=== PATIENT | male | born 1965 | race Two or more races ===

== ENCOUNTER 2019-01-30 20:50 | Inpatient (IN) | payer MEDICARE, OTHER ==
[~2019-01-30] VITALS: Ht 167.6 cm; Wt 79.8 kg
[~2019-01-30 20:50] MED LIST: CAPT25TA3 PO; CITA-106 PO; HYDR25TA PO
[2019-01-30 21:46] VITALS: BP 129/80
[2019-01-31] VITALS (7 sets, daily range): BP systolic 120–152; BP diastolic 76–100
[2019-01-31] MEDS: LORazepam 2 MG TABLET PO PRN ×2 (09:30→15:58)
[2019-01-31] MEDS ORDERED: CAPTOPRIL 50 MG TABLET PO SCH (10:00)
[2019-01-31] MEDS: HYDROCHLOROTHIAZIDE 25 MG TABLET PO SCH (10:09)
[2019-01-31] MEDS ORDERED: LOPERAMIDE HCL 2 MG CAPSULE PO PRN (16:45)
[2019-01-31] MEDS ORDERED: ALBUTEROL SULFATE HFA 90 MCG/PUFF 8 GM INHALER IH PRN (16:45)
[2019-01-31] MEDS ORDERED: DOCUSATE SODIUM 100 MG CAPSULE PO PRN (16:45)
[2019-01-31] MEDS ORDERED: ONDANSETRON HCL 4 MG TABLET PO PRN (16:45)
[2019-01-31] MEDS ORDERED: MAGNESIUM HYDROXIDE SUSPENSION 30 ML UDCUP PO PRN (16:45)
[2019-01-31] MEDS ORDERED: BENZOCAINE/MENTHOL LOZENGE MM PRN (16:45)
[2019-01-31] MEDS ORDERED: CloNIDine HCL 0.1 MG TABLET PO PRN (16:45)
[2019-01-31] MEDS ORDERED: OMEPRAZOLE 20 MG CAPSULE PO PRN (16:45)
[2019-01-31] MEDS ORDERED: PETROLATUM,WHITE 28 GM JELLY TP PRN (16:45)
[2019-01-31] MEDS ORDERED: BACITRACIN 28.4 GM OINTMENT TP PRN (16:45)
[2019-02-01 05:16] VITALS: BP 132/80
[2019-02-01 07:41] LABS: BASOPHILS % (AUTO) 1.8 % (0.0-2.0); EOSINOPHILS % (AUTO) 4.8 % (1.0-6.0); HEMATOCRIT 40.2 % (41-53); HEMOGLOBIN 13.3 g/dL (13.5-17.5); LYMPHOCYTES # (AUTO) 2.7 K/uL (1.0-4.8); LYMPHOCYTES % (AUTO) 36.5 % (22.0-44.0); MEAN CORPUSCULAR HEMOGLOBIN 28.4 pg (26.0-34.0); MEAN CORPUSCULAR VOLUME 86 fL (80-100); MONOCYTES # (AUTO) 0.5 K/uL (0.1-1.0); MONOCYTES % (AUTO) 6.7 % (2.0-9.0); NEUTROPHILS # (AUTO) 3.7 K/uL (1.8-7.7); NEUTROPHILS % (AUTO) 50.2 % (40.0-70.0); PLATELET COUNT (AUTO) 285 K/uL (150-450); RED BLOOD CELL COUNT(AUTO) 4.68 MIL/uL (4.50-5.90); RED CELL DISTRIBUTION WIDTH 16.7 % (11.5-14.5)
[2019-02-01 08:22] VITALS: BP 138/85
[2019-02-01 08:22] LABS: ALANINE AMINOTRANSFERASE 13 U/L (12-78); ALBUMIN 3.2 g/dL (3.4-5.0); ALKALINE PHOSPHATASE 59 U/L (46-116); ANION GAP 6 mmol/L (8-16); ASPARTATE AMINOTRANSFERASE 16 U/L (15-37); BILIRUBIN,TOTAL 0.3 mg/dL (0.1-1.0); CALCIUM, TOTAL 8.8 mg/dL (8.8-10.5); CARBON DIOXIDE 27 mmol/L (22-29); CHLORIDE 104 mmol/L (98-107); CHOL/HDL RATIO 2.8 (4.2-7.3); CHOLESTEROL 149 mg/dL (131-200); CREATININE 0.74 mg/dL (0.60-1.30); GLOMERULAR FILTR. RATE CALC > 60 mL/min (>60); GLUCOSE,RANDOM 103 mg/dL (70-110); HDL CHOLESTEROL 54 mg/dL (40-60); LDL CHOL (CALC.) 75 mg/dL (0-130); PHOSPHORUS 2.9 mg/dL (2.5-4.9); SODIUM SERUM 137 mmol/L (136-145); THYROID STIMULATING HORMONE 0.39 uIU/mL (0.36-3.74); TOTAL PROTEIN, SERUM 6.4 g/dL (6.4-8.2); TRIGLYCERIDES 100 mg/dL (15-150); UREA NITROGEN, BLOOD 15 mg/dL (7-18)
[2019-02-01] MEDS: DIVALPROEX SODIUM 500 MG DR TABLET PO SCH ×2 (08:27→16:40)
[2019-02-01] MEDS: LORazepam 2 MG TABLET PO PRN ×3 (08:27→18:56)
[2019-02-01] MEDS: RisperiDONE 1 MG TABLET PO SCH ×2 (08:27→16:40)
[2019-02-01] MEDS: HYDROCHLOROTHIAZIDE 25 MG TABLET PO SCH (08:27)
[2019-02-01 12:15] VITALS: BP 125/67
[2019-02-01] MEDS: CAPTOPRIL 12.5 MG TABLET PO SCH (12:18)
[2019-02-01 16:07] VITALS: BP 138/76
[2019-02-02 00:08] VITALS: BP 132/84
[2019-02-02 00:10] VITALS: BP 132/84
[2019-02-02 08:11] VITALS: BP_SYST 126; BP_SYST 127; BP_DIAS 86
[2019-02-02] MEDS: LORazepam 2 MG TABLET PO PRN ×3 (08:17→18:01)
[2019-02-02] MEDS: HYDROCHLOROTHIAZIDE 25 MG TABLET PO SCH (08:17)
[2019-02-02] MEDS: CAPTOPRIL 12.5 MG TABLET PO SCH (08:17)
[2019-02-02] MEDS: RisperiDONE 1 MG TABLET PO SCH ×2 (08:17→16:33)
[2019-02-02] MEDS: DIVALPROEX SODIUM 500 MG DR TABLET PO SCH ×2 (08:17→16:33)
[2019-02-02 13:02] VITALS: BP 122/78
[2019-02-02] MEDS: ACETAMINOPHEN 325 MG TABLET PO PRN (13:02)
[2019-02-02 16:10] VITALS: BP 124/66
[2019-02-02 16:54] VITALS: BP 124/66
[2019-02-03 04:11] VITALS: BP 122/67
[2019-02-03 04:13] VITALS: BP 122/67
[2019-02-03 08:13] VITALS: BP 136/64
[2019-02-03] MEDS: RisperiDONE 1 MG TABLET PO SCH ×2 (08:49→17:04)
[2019-02-03] MEDS: HYDROCHLOROTHIAZIDE 25 MG TABLET PO SCH (08:49)
[2019-02-03] MEDS: DIVALPROEX SODIUM 500 MG DR TABLET PO SCH ×2 (08:49→17:00)
[2019-02-03] MEDS: CAPTOPRIL 12.5 MG TABLET PO SCH (08:49)
[2019-02-03] MEDS: CITALOPRAM HYDROBROMIDE 20 MG TABLET PO SCH (08:49)
[2019-02-03] MEDS: NICOTINE 14 MG/24 HOUR PATCH TD SCH (08:50)
[2019-02-03] MEDS: LORazepam 2 MG TABLET PO PRN ×2 (13:02→18:42)
[2019-02-03] MEDS: ACETAMINOPHEN 325 MG TABLET PO PRN (14:57)
[2019-02-03 16:17] VITALS: BP 117/62
[2019-02-03] MEDS: IBUPROFEN 600 MG TABLET PO PRN (17:16)
[2019-02-04 04:10] VITALS: BP 121/68
[2019-02-04 04:13] VITALS: BP 121/68
[2019-02-04] MEDS: ACETAMINOPHEN 325 MG TABLET PO PRN (06:55)
[2019-02-04 08:13] VITALS: BP 121/53
[2019-02-04] MEDS: DIVALPROEX SODIUM 500 MG DR TABLET PO SCH ×3 (08:34→16:39)
[2019-02-04] MEDS: CITALOPRAM HYDROBROMIDE 20 MG TABLET PO SCH (08:34)
[2019-02-04] MEDS: HYDROCHLOROTHIAZIDE 25 MG TABLET PO SCH (08:34)
[2019-02-04] MEDS: RisperiDONE 1 MG TABLET PO SCH ×2 (08:34→16:39)
[2019-02-04 08:35] VITALS: BP 123/70
[2019-02-04] MEDS: CAPTOPRIL 12.5 MG TABLET PO SCH (08:35)
[2019-02-04] MEDS: NICOTINE 14 MG/24 HOUR PATCH TD SCH ×2 (08:35→08:48)
[2019-02-04] MEDS: LORazepam 2 MG TABLET PO PRN ×3 (08:50→19:08)
[2019-02-04] MEDS: IBUPROFEN 600 MG TABLET PO PRN (16:21)
[2019-02-04 16:32] VITALS: BP 120/82
[2019-02-04 16:34] VITALS: BP 120/82
[2019-02-05 00:27] VITALS: BP 131/75
[2019-02-05 00:32] VITALS: BP 131/75
[2019-02-05 08:26] VITALS: BP 114/65
[2019-02-05] MEDS: DIVALPROEX SODIUM 500 MG DR TABLET PO SCH ×2 (08:42→16:36)
[2019-02-05] MEDS: HYDROCHLOROTHIAZIDE 25 MG TABLET PO SCH (08:42)
[2019-02-05] MEDS: RisperiDONE 1 MG TABLET PO SCH ×2 (08:42→16:37)
[2019-02-05] MEDS: CITALOPRAM HYDROBROMIDE 20 MG TABLET PO SCH (08:42)
[2019-02-05] MEDS: NICOTINE 14 MG/24 HOUR PATCH TD SCH (08:43)
[2019-02-05] MEDS: CAPTOPRIL 12.5 MG TABLET PO SCH (08:43)
[2019-02-05] MEDS: LORazepam 2 MG TABLET PO PRN ×3 (10:35→20:15)
[2019-02-05 12:12] VITALS: BP 118/68
[2019-02-05] MEDS: ACETAMINOPHEN 325 MG TABLET PO PRN ×2 (12:12→21:15)
[2019-02-05] MEDS: IBUPROFEN 600 MG TABLET PO PRN (14:09)
[2019-02-05 16:18] VITALS: BP_SYST 108; BP_SYST 120; BP_DIAS 72; BP_DIAS 76
[2019-02-05 17:13] VITALS: BP 120/72
[2019-02-05] MEDS: ZOLPIDEM TARTRATE 10 MG TABLET PO PRN (21:15)
[2019-02-05] MEDS: MAG HYDROX/AL HYDROX/SIMETH ES 30 ML SUSPENSION UDCUP PO PRN (21:15)
[2019-02-06] VITALS: BP 118/68
[2019-02-06 08:28] VITALS: BP 137/78
[2019-02-06] MEDS: CAPTOPRIL 12.5 MG TABLET PO SCH (08:28)
[2019-02-06] MEDS: DIVALPROEX SODIUM 500 MG DR TABLET PO SCH ×2 (08:28→17:04)
[2019-02-06] MEDS: RisperiDONE 1 MG TABLET PO SCH ×2 (08:28→17:04)
[2019-02-06] MEDS: CITALOPRAM HYDROBROMIDE 20 MG TABLET PO SCH (08:28)
[2019-02-06] MEDS: HYDROCHLOROTHIAZIDE 25 MG TABLET PO SCH (08:28)
[2019-02-06] MEDS: NICOTINE 14 MG/24 HOUR PATCH TD SCH (08:29)
[2019-02-06 08:39] VITALS: BP 117/70
[2019-02-06] MEDS: LORazepam 2 MG TABLET PO PRN ×3 (09:33→20:00)
[2019-02-06] MEDS: ACETAMINOPHEN 325 MG TABLET PO PRN ×2 (09:34→20:00)
[2019-02-06 12:39] VITALS: BP 124/72
[2019-02-06] MEDS: IBUPROFEN 600 MG TABLET PO PRN (13:29)
[2019-02-06 16:04] VITALS: BP 136/84
[2019-02-06] MEDS: MAG HYDROX/AL HYDROX/SIMETH ES 30 ML SUSPENSION UDCUP PO PRN (16:25)
[2019-02-07 06:31] VITALS: BP 126/77
[2019-02-07] MEDS: LORazepam 2 MG TABLET PO PRN ×4 (06:41→20:00)
[2019-02-07] MEDS: IBUPROFEN 600 MG TABLET PO PRN (06:41)
[2019-02-07] MEDS: CAPTOPRIL 12.5 MG TABLET PO SCH (09:37)
[2019-02-07] MEDS: RisperiDONE 1 MG TABLET PO SCH ×2 (09:37→16:59)
[2019-02-07] MEDS: CITALOPRAM HYDROBROMIDE 20 MG TABLET PO SCH (09:37)
[2019-02-07] MEDS: NICOTINE 14 MG/24 HOUR PATCH TD SCH (09:38)
[2019-02-07] MEDS: HYDROCHLOROTHIAZIDE 25 MG TABLET PO SCH (09:38)
[2019-02-07] MEDS: DIVALPROEX SODIUM 500 MG DR TABLET PO SCH ×2 (09:38→16:59)
[2019-02-07 09:42] VITALS: BP 118/80
[2019-02-07 16:09] VITALS: BP 118/87
[2019-02-07] MEDS: ACETAMINOPHEN 325 MG TABLET PO PRN (16:33)
[2019-02-07] MEDS: MAG HYDROX/AL HYDROX/SIMETH ES 30 ML SUSPENSION UDCUP PO PRN (18:30)
[2019-02-08 03:00] VITALS: BP 123/78
[2019-02-08] MEDS: ZOLPIDEM TARTRATE 10 MG TABLET PO PRN (03:07)
[2019-02-08] MEDS: ACETAMINOPHEN 325 MG TABLET PO PRN ×2 (03:10→18:43)
[2019-02-08 07:00] VITALS: BP 121/89
[2019-02-08] MEDS: LORazepam 2 MG TABLET PO PRN ×3 (07:20→16:09)
[2019-02-08 08:23] VITALS: BP 109/69
[2019-02-08] MEDS: RisperiDONE 1 MG TABLET PO SCH ×2 (09:08→16:09)
[2019-02-08] MEDS: CAPTOPRIL 12.5 MG TABLET PO SCH (09:08)
[2019-02-08] MEDS: HYDROCHLOROTHIAZIDE 25 MG TABLET PO SCH (09:08)
[2019-02-08] MEDS: CITALOPRAM HYDROBROMIDE 20 MG TABLET PO SCH (09:08)
[2019-02-08] MEDS: DIVALPROEX SODIUM 500 MG DR TABLET PO SCH ×2 (09:08→16:09)
[2019-02-08] MEDS: NICOTINE 14 MG/24 HOUR PATCH TD SCH (09:09)
[2019-02-08] MEDS: MAG HYDROX/AL HYDROX/SIMETH ES 30 ML SUSPENSION UDCUP PO PRN (11:23)
[2019-02-08 16:09] VITALS: BP 115/65
[2019-02-08] MEDS: IBUPROFEN 600 MG TABLET PO PRN (16:09)
[2019-02-08 16:30] VITALS: BP 110/68
[2019-02-08 18:43] VITALS: BP 112/70
[2019-02-09 04:29] VITALS: BP 123/95
[2019-02-09] MEDS: LORazepam 2 MG TABLET PO PRN ×4 (04:36→19:55)
[2019-02-09] MEDS: HYDROCHLOROTHIAZIDE 25 MG TABLET PO SCH (08:51)
[2019-02-09] MEDS: CITALOPRAM HYDROBROMIDE 20 MG TABLET PO SCH (08:51)
[2019-02-09] MEDS: CAPTOPRIL 12.5 MG TABLET PO SCH (08:51)
[2019-02-09] MEDS: RisperiDONE 1 MG TABLET PO SCH ×2 (08:51→16:53)
[2019-02-09] MEDS: DIVALPROEX SODIUM 500 MG DR TABLET PO SCH ×2 (08:51→16:53)
[2019-02-09 09:01] VITALS: BP 133/86
[2019-02-09] MEDS: ACETAMINOPHEN 325 MG TABLET PO PRN ×2 (10:18→17:44)
[2019-02-09] MEDS: NICOTINE 14 MG/24 HOUR PATCH TD SCH (10:19)
[2019-02-09 14:24] VITALS: BP 119/73
[2019-02-09] MEDS: IBUPROFEN 600 MG TABLET PO PRN (14:26)
[2019-02-09] MEDS ORDERED: NICOTINE 14 MG/24 HOUR PATCH TD PRN (14:30)
[2019-02-09 16:29] VITALS: BP 125/70
[2019-02-09] MEDS: ZOLPIDEM TARTRATE 10 MG TABLET PO PRN (21:05)
[2019-02-10 04:32] VITALS: BP 127/82
[2019-02-10] MEDS: LORazepam 2 MG TABLET PO PRN ×3 (04:40→16:01)
[2019-02-10 08:28] VITALS: BP 117/67
[2019-02-10] MEDS: CAPTOPRIL 12.5 MG TABLET PO SCH (09:17)
[2019-02-10] MEDS: RisperiDONE 1 MG TABLET PO SCH ×2 (09:17→16:48)
[2019-02-10] MEDS: HYDROCHLOROTHIAZIDE 25 MG TABLET PO SCH (09:17)
[2019-02-10] MEDS: DIVALPROEX SODIUM 500 MG DR TABLET PO SCH ×2 (09:17→16:48)
[2019-02-10] MEDS: CITALOPRAM HYDROBROMIDE 20 MG TABLET PO SCH (09:20)
[2019-02-10] MEDS: ACETAMINOPHEN 325 MG TABLET PO PRN (11:35)
[2019-02-10 16:08] VITALS: BP 120/75
[2019-02-11 06:25] VITALS: BP 126/79
[2019-02-11] MEDS: CITALOPRAM HYDROBROMIDE 20 MG TABLET PO SCH (09:11)
[2019-02-11] MEDS: RisperiDONE 1 MG TABLET PO SCH ×2 (09:12→16:32)
[2019-02-11] MEDS: CAPTOPRIL 12.5 MG TABLET PO SCH (09:12)
[2019-02-11] MEDS: DIVALPROEX SODIUM 500 MG DR TABLET PO SCH ×2 (09:12→16:32)
[2019-02-11] MEDS: HYDROCHLOROTHIAZIDE 25 MG TABLET PO SCH (09:28)
[2019-02-11] MEDS: LORazepam 2 MG TABLET PO PRN ×3 (09:28→18:41)
[2019-02-11 10:56] VITALS: BP 119/74
[2019-02-11] MEDS: ACETAMINOPHEN 325 MG TABLET PO PRN (13:51)
[2019-02-11 14:11] VITALS: BP 122/86
[2019-02-11 16:41] VITALS: BP 116/77
[2019-02-11] MEDS: IBUPROFEN 600 MG TABLET PO PRN (16:41)
[2019-02-11] MEDS: ZOLPIDEM TARTRATE 10 MG TABLET PO PRN (20:48)
[2019-02-11] MEDS ORDERED: RISP2 PO (22:42)
[2019-02-11] MEDS ORDERED: HYDR25TA PO (22:42)
[2019-02-11] MEDS ORDERED: DIVA-76 PO (22:42)
[2019-02-11] MEDS ORDERED: CITA-106 PO (22:42)
[2019-02-12 05:01] VITALS: BP 124/75
[2019-02-12 07:21] VITALS: BP 126/78
[2019-02-12] MEDS: LORazepam 2 MG TABLET PO PRN (07:43)
[2019-02-12] MEDS: DIVALPROEX SODIUM 500 MG DR TABLET PO SCH (08:35)
[2019-02-12] MEDS: RisperiDONE 1 MG TABLET PO SCH (08:35)
[2019-02-12] MEDS: CITALOPRAM HYDROBROMIDE 20 MG TABLET PO SCH (08:35)
[2019-02-12 08:46] VITALS: BP 114/73
[2019-02-12 08:59] VITALS: BP 119/78
[2019-02-12] MEDS: ACETAMINOPHEN 325 MG TABLET PO PRN (09:00)
[2019-02-12] MEDS ORDERED: MAGNESIUM OXIDE 400 MG TABLET PO SCH (09:00)
[2019-02-12] MEDS: HYDROCHLOROTHIAZIDE 25 MG TABLET PO SCH (09:00)
[2019-02-12] MEDS: CAPTOPRIL 12.5 MG TABLET PO SCH (09:00)
[2019-02-12] MEDS ORDERED: MAGOX PO (09:01)
== END 2019-02-12 11:15 | disposition home or self-care (01) | DRG 885 ==
LOC: EDSTATUS 20:50 → B2X 01-31 09:17
PROVIDERS: ADMIT Psychiatry & Neurology Psychiatry; ATTEND Psychiatry & Neurology Psychiatry
DX: F25.9 Schizoaffective disorder, unspecified (principal); R45.851 Suicidal ideations; F32.9 Major depressive disorder, single episode, unspecified; F41.9 Anxiety disorder, unspecified; G47.00 Insomnia, unspecified; I10 Essential (primary) hypertension; J44.9 Chronic obstructive pulmonary disease, unspecified; F15.10 Other stimulant abuse, uncomplicated; F10.10 Alcohol abuse, uncomplicated; Z71.6 Tobacco abuse counseling; Z71.51 Drug abuse counseling and surveillance of drug abuser
CPT/HCPCS: 83735; 84100; 84132; 84443; 93005; 96365; 96366; 96367; 96375; 99291; 99292; G0480

== ENCOUNTER 2019-01-30 21:51 | Emergency (ER) | payer MEDICARE ==
[~2019-01-30] VITALS: Ht 167.6 cm; Wt 81.8 kg
[~2019-01-30 21:51] MED LIST changes: +ESCI10TA PO; +FERR1TAB85 PO; +HC130O TP; +NYST1POW MC; +PREPARATION H O57 GM RC; +QUET100T PO
[2019-01-30 23:31] LABS: BASOPHILS % (AUTO) 2.8 % (0.0-2.0); EOSINOPHILS % (AUTO) 3.3 % (1.0-6.0); HEMATOCRIT 38.5 % (41-53); HEMOGLOBIN 13.1 g/dL (13.5-17.5); LYMPHOCYTES # (AUTO) 2.6 K/uL (1.0-4.8); LYMPHOCYTES % (AUTO) 34.6 % (22.0-44.0); MEAN CORPUSCULAR HEMOGLOBIN 28.9 pg (26.0-34.0); MEAN CORPUSCULAR HGB CONC 34.1 G/dL (31.0-37.0); MEAN CORPUSCULAR VOLUME 85 fL (80-100); MONOCYTES # (AUTO) 0.4 K/uL (0.1-1.0); MONOCYTES % (AUTO) 5.7 % (2.0-9.0); NEUTROPHILS % (AUTO) 53.6 % (40.0-70.0); PLATELET COUNT (AUTO) 324 K/uL (150-450); RED BLOOD CELL COUNT(AUTO) 4.54 MIL/uL (4.50-5.90); RED CELL DISTRIBUTION WIDTH 16.3 % (11.5-14.5)
[2019-01-30 23:52] LABS: ALANINE AMINOTRANSFERASE 23 U/L (12-78); ALBUMIN 3.7 g/dL (3.4-5.0); ALKALINE PHOSPHATASE 89 U/L (46-116); ANION GAP 8 mmol/L (8-16); ASPARTATE AMINOTRANSFERASE 15 U/L (15-37); BILIRUBIN,TOTAL 0.2 mg/dL (0.1-1.0); CALCIUM, TOTAL 9.3 mg/dL (8.8-10.5); CARBON DIOXIDE 26 mmol/L (22-29); CHLORIDE 105 mmol/L (98-107); CREATININE 0.85 mg/dL (0.60-1.30); GLOMERULAR FILTR. RATE CALC > 60 mL/min (>60); GLUCOSE,RANDOM 124 mg/dL (70-110); SODIUM SERUM 139 mmol/L (136-145); TOTAL PROTEIN, SERUM 6.9 g/dL (6.4-8.2); UREA NITROGEN, BLOOD 7 mg/dL (7-18)
[2019-01-30 23:57] LABS: POTASSIUM 2.8 mmol/L (3.5-5.1)
[2019-01-31] MEDS ORDERED: LORazepam 2 MG/ML VIAL IVP ONE ×2 (00:30→05:45)
[2019-01-31] MEDS ORDERED: POTASSIUM CHLORIDE 20 MEQ ER TABLET PO ONE (00:30)
[2019-01-31 00:49] LABS: AMPHET/METH SCREEN,URINE POSITIVE (NEGATIVE); BARBITURATE SCREEN, URINE NEGATIVE (NEGATIVE); BENZODIAZEPINES SCREEN,URINE NEGATIVE (NEGATIVE); CANNABINOID SCREEN,URINE NEGATIVE (NEGATIVE); COCAINE SCREEN,URINE NEGATIVE (NEGATIVE); METHADONE SCREEN, URINE NEGATIVE (NEGATIVE); OPIATE SCREEN,URINE NEGATIVE (NEGATIVE); PHENCYCLIDINE SCREEN,URINE NEGATIVE (NEGATIVE)
[2019-01-31] MEDS ORDERED: SODIUM CHLORIDE 0.9% 1,000 ML IV ONE (00:56)
[2019-01-31] MEDS: POTASSIUM CHL 10 MEQ/WATER 50 ML IV SCH ×3 (01:02→04:40)
[2019-01-31] MEDS ORDERED: RINGERS SOLUTION,LACTATED 0 ML IV ONE (04:19)
[2019-01-31] MEDS ORDERED: MAGNESIUM SULFATE 2 GM/WATER 50 ML IV ONE (04:45)
[2019-01-31] MEDS ORDERED: PNEUMOCOCCAL VACCINE POLYVALENT 0.5 ML VIAL [PPSV23] IM ONE (06:00)
[2019-01-31 07:59] VITALS: BP 155/95
== END 2019-01-31 09:14 | disposition other institution (70) ==
LOC: EMS 21:52
DX: F10.239 Alcohol dependence with withdrawal, unspecified (principal); E87.6 Hypokalemia; G89.29 Other chronic pain; J45.909 Unspecified asthma, uncomplicated; I10 Essential (primary) hypertension; F17.210 Nicotine dependence, cigarettes, uncomplicated; Z88.8 Allergy status to other drugs, medicaments and biological substances; Y90.3 Blood alcohol level of 60-79 mg/100 ml
CPT/HCPCS: 36415; 71046; 80053; 80307; 84132; 84484; 85025; 93005; 96365; 96366; 96367; 96375; 99291; 99292; G0480; J2060; J3475; J3480; J7030; J7120

== ENCOUNTER 2021-01-03 03:52 | Inpatient (IN) | payer MEDICARE ==
[~2021-01-03] VITALS: Ht 167.6 cm; Wt 108.9 kg
[~2021-01-03 03:52] MED LIST changes: -CITA-106 PO; +CITA-144 PO; +DIVA-111 PO; -ESCI10TA PO; -FERR1TAB85 PO; -HC130O TP; +MAGN400T7 PO; -NYST1POW MC; -PREPARATION H O57 GM RC; -QUET100T PO; +RISP2TAB45 PO
[2021-01-03 16:14] VITALS: BP 134/90
[2021-01-03 16:57] VITALS: BP 169/99
[2021-01-03] MEDS: LORazepam 2 MG TABLET PO PRN (17:45)
[2021-01-03] MEDS: OLANZapine 5 MG TABLET PO SCH (17:46)
[2021-01-04 05:03] VITALS: BP 150/86
[2021-01-04 07:26] LABS: BASOPHILS % (AUTO) 1.2 % (0.0-2.0); EOSINOPHILS % (AUTO) 4.1 % (1.0-6.0); HEMATOCRIT 43.2 % (41-53); LYMPHOCYTES # (AUTO) 2.6 K/uL (1.0-4.8); LYMPHOCYTES % (AUTO) 28.6 % (22.0-44.0); MEAN CORPUSCULAR HEMOGLOBIN 27.3 pg (26.0-34.0); MEAN CORPUSCULAR HGB CONC 32.4 G/dL (31.0-37.0); MEAN CORPUSCULAR VOLUME 84 fL (80-100); MONOCYTES # (AUTO) 0.6 K/uL (0.1-1.0); MONOCYTES % (AUTO) 6.3 % (2.0-9.0); NEUTROPHILS # (AUTO) 5.5 K/uL (1.8-7.7); NEUTROPHILS % (AUTO) 59.8 % (40.0-70.0); PLATELET COUNT (AUTO) 255 K/uL (150-450); RED BLOOD CELL COUNT(AUTO) 5.14 MIL/uL (4.50-5.90); RED CELL DISTRIBUTION WIDTH 16.8 % (11.5-14.5)
[2021-01-04] MEDS ORDERED: DOCUSATE SODIUM 100 MG CAPSULE PO PRN (07:30)
[2021-01-04] MEDS ORDERED: ALBUTEROL SULFATE HFA 90 MCG/PUFF 8 GM INHALER IH PRN (07:30)
[2021-01-04] MEDS ORDERED: LOPERAMIDE HCL 2 MG CAPSULE PO PRN (07:30)
[2021-01-04] MEDS ORDERED: PETROLATUM,WHITE 28 GM JELLY TP PRN (07:30)
[2021-01-04] MEDS ORDERED: MAG HYDROX/AL HYDROX/SIMETH ES 30 ML SUSPENSION UDCUP PO PRN (07:30)
[2021-01-04] MEDS ORDERED: ACETAMINOPHEN 325 MG TABLET PO PRN (07:30)
[2021-01-04] MEDS ORDERED: CloNIDine HCL 0.1 MG TABLET PO PRN (07:30)
[2021-01-04] MEDS ORDERED: GuaiFENesin/D-METHORPHAN [SUGAR-FREE] 200-20MG/10 ML SYRUP UDCUP PO PRN (07:30)
[2021-01-04] MEDS ORDERED: ONDANSETRON HCL 4 MG TABLET PO PRN (07:30)
[2021-01-04] MEDS ORDERED: MAGNESIUM HYDROXIDE SUSPENSION 30 ML UDCUP PO PRN (07:30)
[2021-01-04 07:51] LABS: ALANINE AMINOTRANSFERASE 58 U/L (12-78); ALBUMIN 2.7 g/dL (3.4-5.0); ALKALINE PHOSPHATASE 49 U/L (46-116); ANION GAP 6 mmol/L (8-16); ASPARTATE AMINOTRANSFERASE 31 U/L (15-37); BILIRUBIN,TOTAL 0.3 mg/dL (0.1-1.0); CARBON DIOXIDE 26 mmol/L (22-29); CHLORIDE 106 mmol/L (98-107); CHOL/HDL RATIO 3.3 (4.2-7.3); CHOLESTEROL 124 mg/dL (131-200); CREATININE 0.68 mg/dL (0.60-1.30); FREE T4 (FREE THYROXINE) 0.77 ng/dL (0.76-1.46); GLOMERULAR FILTR. RATE CALC > 60 mL/min (>60); GLUCOSE,RANDOM 106 mg/dL (70-110); HDL CHOLESTEROL 38 mg/dL (40-60); LDL CHOL (CALC.) 70 mg/dL (0-130); POTASSIUM 3.2 mmol/L (3.5-5.1); SODIUM SERUM 138 mmol/L (136-145); THYROID STIMULATING HORMONE 0.89 uIU/mL (0.36-3.74); TRIGLYCERIDES 78 mg/dL (15-150); UREA NITROGEN, BLOOD 9 mg/dL (7-18)
[2021-01-04 08:01] LABS: HEMOGLOBIN A1C 5.5 % (3.8-5.6)
[2021-01-04] MEDS: LORazepam 2 MG TABLET PO PRN ×2 (08:25→12:25)
[2021-01-04] MEDS: OLANZapine 5 MG TABLET PO SCH ×2 (08:44→16:40)
[2021-01-04] MEDS: HYDROCHLOROTHIAZIDE 25 MG TABLET PO SCH (08:44)
[2021-01-04] MEDS ORDERED: CAPTOPRIL 25 MG TABLET PO SCH (09:00)
[2021-01-04 10:02] VITALS: BP 140/87
[2021-01-04 17:00] VITALS: BP 111/68
[2021-01-05 06:28] VITALS: BP 153/94
[2021-01-05] MEDS ORDERED: POTASSIUM CHLORIDE 20 MEQ ER TABLET PO ONE (08:15)
[2021-01-05] MEDS: LORazepam 2 MG TABLET PO PRN ×4 (08:20→22:10)
[2021-01-05 08:26] VITALS: BP 127/76
[2021-01-05] MEDS: CAPTOPRIL 12.5 MG TABLET PO SCH (08:45)
[2021-01-05] MEDS: HYDROCHLOROTHIAZIDE 25 MG TABLET PO SCH (08:46)
[2021-01-05] MEDS: OLANZapine 5 MG TABLET PO SCH ×2 (08:46→16:55)
[2021-01-05] MEDS: BuPROPion HCL XL 150 MG ER TABLET PO SCH (12:38)
[2021-01-05 16:10] VITALS: BP 140/78
[2021-01-05] MEDS: ZOLPIDEM TARTRATE 10 MG TABLET PO PRN (20:06)
[2021-01-06 06:09] VITALS: BP 138/76
[2021-01-06 08:22] VITALS: BP 158/95
[2021-01-06] MEDS: CAPTOPRIL 12.5 MG TABLET PO SCH (09:08)
[2021-01-06] MEDS: OLANZapine 5 MG TABLET PO SCH ×2 (09:08→16:32)
[2021-01-06] MEDS: BuPROPion HCL XL 150 MG ER TABLET PO SCH (09:08)
[2021-01-06] MEDS: HYDROCHLOROTHIAZIDE 25 MG TABLET PO SCH (09:08)
[2021-01-06] MEDS: LORazepam 2 MG TABLET PO PRN ×2 (13:40→17:43)
[2021-01-06 16:31] VITALS: BP 125/70
[2021-01-06] MEDS: IBUPROFEN 400 MG TABLET PO PRN (17:34)
[2021-01-06] MEDS: ZOLPIDEM TARTRATE 10 MG TABLET PO PRN (20:32)
[2021-01-07 05:06] VITALS: BP 124/72
[2021-01-07] MEDS: LORazepam 2 MG TABLET PO PRN ×3 (08:20→21:30)
[2021-01-07] MEDS: BuPROPion HCL XL 150 MG ER TABLET PO SCH (08:32)
[2021-01-07] MEDS: HYDROCHLOROTHIAZIDE 25 MG TABLET PO SCH (08:32)
[2021-01-07] MEDS: CAPTOPRIL 12.5 MG TABLET PO SCH (08:32)
[2021-01-07] MEDS: OLANZapine 5 MG TABLET PO SCH ×2 (08:32→16:31)
[2021-01-07 08:37] VITALS: BP 143/88
[2021-01-07 16:31] VITALS: BP 135/80
[2021-01-07] MEDS: ZOLPIDEM TARTRATE 10 MG TABLET PO PRN (21:30)
[2021-01-08 04:42] VITALS: BP 128/82
[2021-01-08 08:28] VITALS: BP 149/76
[2021-01-08] MEDS: LORazepam 2 MG TABLET PO PRN ×3 (08:40→18:47)
[2021-01-08] MEDS: OLANZapine 5 MG TABLET PO SCH ×2 (09:08→16:34)
[2021-01-08] MEDS: CAPTOPRIL 12.5 MG TABLET PO SCH (09:08)
[2021-01-08] MEDS: HYDROCHLOROTHIAZIDE 25 MG TABLET PO SCH (09:08)
[2021-01-08] MEDS: BuPROPion HCL XL 150 MG ER TABLET PO SCH (09:08)
[2021-01-08 16:25] VITALS: BP 136/72
[2021-01-08] MEDS: NICOTINE 14 MG/24 HOUR PATCH TD PRN (17:45)
[2021-01-08] MEDS: ZOLPIDEM TARTRATE 10 MG TABLET PO PRN (20:24)
[2021-01-09 02:08] VITALS: BP 132/66
[2021-01-09] MEDS: HYDROCHLOROTHIAZIDE 25 MG TABLET PO SCH (09:43)
[2021-01-09] MEDS: OLANZapine 5 MG TABLET PO SCH ×2 (09:43→16:54)
[2021-01-09] MEDS: CAPTOPRIL 12.5 MG TABLET PO SCH (09:43)
[2021-01-09] MEDS: BuPROPion HCL XL 150 MG ER TABLET PO SCH (09:43)
[2021-01-09 10:39] VITALS: BP 144/83
[2021-01-09] MEDS: LORazepam 2 MG TABLET PO PRN ×2 (11:40→16:54)
[2021-01-09 16:22] VITALS: BP 136/82
[2021-01-09] MEDS: ZOLPIDEM TARTRATE 10 MG TABLET PO PRN (21:05)
[2021-01-10 00:24] VITALS: BP 134/80
[2021-01-10] MEDS: LORazepam 2 MG TABLET PO PRN ×3 (08:30→17:16)
[2021-01-10] MEDS: CAPTOPRIL 12.5 MG TABLET PO SCH (08:39)
[2021-01-10] MEDS: BuPROPion HCL XL 150 MG ER TABLET PO SCH (08:39)
[2021-01-10] MEDS: HYDROCHLOROTHIAZIDE 25 MG TABLET PO SCH (08:39)
[2021-01-10] MEDS: OLANZapine 5 MG TABLET PO SCH ×2 (08:40→16:39)
[2021-01-10 08:53] VITALS: BP 145/83
[2021-01-10] MEDS: MEGESTROL ACETATE 40 MG TABLET PO SCH (12:15)
[2021-01-10 16:39] VITALS: BP 122/80
[2021-01-10] MEDS: ZOLPIDEM TARTRATE 10 MG TABLET PO PRN (21:29)
[2021-01-11 06:44] VITALS: BP 129/79
[2021-01-11 07:47] LABS: COVID AG,FIA SOURCE NASAL SWAB
[2021-01-11] MEDS: LORazepam 2 MG TABLET PO PRN ×3 (08:15→19:55)
[2021-01-11] MEDS: CAPTOPRIL 12.5 MG TABLET PO SCH (08:33)
[2021-01-11] MEDS: MEGESTROL ACETATE 40 MG TABLET PO SCH (08:33)
[2021-01-11] MEDS: HYDROCHLOROTHIAZIDE 25 MG TABLET PO SCH (08:33)
[2021-01-11] MEDS: OLANZapine 5 MG TABLET PO SCH ×2 (08:33→16:04)
[2021-01-11] MEDS: BuPROPion HCL XL 150 MG ER TABLET PO SCH (08:33)
[2021-01-11 09:52] VITALS: BP 134/90
[2021-01-11] MEDS ORDERED: BuPROPion HCL XL 150 MG ER TABLET PO ONE (11:00)
[2021-01-11 16:08] VITALS: BP 128/82
[2021-01-11] MEDS: ZOLPIDEM TARTRATE 10 MG TABLET PO PRN (20:43)
[2021-01-12 02:40] VITALS: BP 124/81
[2021-01-12 08:30] VITALS: BP 134/87
[2021-01-12] MEDS: BuPROPion HCL XL 150 MG ER TABLET PO SCH (08:32)
[2021-01-12] MEDS: MEGESTROL ACETATE 40 MG TABLET PO SCH (08:33)
[2021-01-12] MEDS: OLANZapine 5 MG TABLET PO SCH ×2 (08:33→16:19)
[2021-01-12] MEDS: CAPTOPRIL 12.5 MG TABLET PO SCH (08:33)
[2021-01-12] MEDS: HYDROCHLOROTHIAZIDE 25 MG TABLET PO SCH (08:33)
[2021-01-12] MEDS ORDERED: BuPROPion HCL XL 150 MG ER TABLET PO SCH (09:00)
[2021-01-12] MEDS: LORazepam 2 MG TABLET PO PRN ×3 (10:33→18:56)
[2021-01-12] MEDS: NICOTINE 14 MG/24 HOUR PATCH TD PRN (10:52)
[2021-01-12] MEDS: IBUPROFEN 400 MG TABLET PO PRN (13:06)
[2021-01-12 16:29] VITALS: BP 155/96
[2021-01-12] MEDS: ZOLPIDEM TARTRATE 10 MG TABLET PO PRN (20:30)
[2021-01-13 06:05] VITALS: BP 139/85
[2021-01-13 09:02] VITALS: BP 130/76
[2021-01-13] MEDS: CAPTOPRIL 25 MG TABLET PO SCH (09:10)
[2021-01-13] MEDS: OLANZapine 5 MG TABLET PO SCH ×2 (09:10→16:13)
[2021-01-13] MEDS: HYDROCHLOROTHIAZIDE 25 MG TABLET PO SCH (09:11)
[2021-01-13] MEDS: MEGESTROL ACETATE 40 MG TABLET PO SCH (09:11)
[2021-01-13] MEDS: BuPROPion HCL XL 150 MG ER TABLET PO SCH (09:11)
[2021-01-13] MEDS: LORazepam 2 MG TABLET PO PRN ×2 (09:13→13:54)
[2021-01-13] MEDS: NICOTINE 14 MG/24 HOUR PATCH TD PRN (09:14)
[2021-01-13 16:26] VITALS: BP 146/96
[2021-01-13] MEDS ORDERED: ZOLPIDEM TARTRATE 10 MG TABLET PO PRN (18:15)
[2021-01-13] MEDS ORDERED: LORazepam 2 MG TABLET PO PRN (18:15)
[2021-01-13 20:42] VITALS: BP 142/94
[2021-01-14 05:03] VITALS: BP 139/83
[2021-01-14] MEDS ORDERED: OLAN5TAB52 PO (08:09)
[2021-01-14] MEDS ORDERED: BUPR-93 PO (08:09)
[2021-01-14] MEDS: CAPTOPRIL 25 MG TABLET PO SCH (08:21)
[2021-01-14] MEDS: HYDROCHLOROTHIAZIDE 25 MG TABLET PO SCH (08:21)
[2021-01-14] MEDS: BuPROPion HCL XL 150 MG ER TABLET PO SCH (08:21)
[2021-01-14] MEDS: MEGESTROL ACETATE 40 MG TABLET PO SCH (08:22)
[2021-01-14] MEDS: OLANZapine 5 MG TABLET PO SCH (08:22)
== END 2021-01-14 08:30 | disposition home or self-care (01) | DRG 885 ==
LOC: B3A 16:47
PROVIDERS: ADMIT Psychiatry & Neurology Child & Adolescent Psychiatry; ATTEND Psychiatry & Neurology Child & Adolescent Psychiatry
DX: F25.1 Schizoaffective disorder, depressive type (principal); R45.851 Suicidal ideations; F15.90 Other stimulant use, unspecified, uncomplicated; F10.10 Alcohol abuse, uncomplicated; E78.5 Hyperlipidemia, unspecified; E88.09 Other disorders of plasma-protein metabolism, not elsewhere classified; G47.00 Insomnia, unspecified; I10 Essential (primary) hypertension; J44.9 Chronic obstructive pulmonary disease, unspecified; K21.9 Gastro-esophageal reflux disease without esophagitis; Z20.822 Contact with and (suspected) exposure to COVID-19; Z59.0 Homelessness; Z88.8 Allergy status to other drugs, medicaments and biological substances; Z79.899 Other long term (current) drug therapy
CPT/HCPCS: 80053; 80061; 83036; 84132; 84439; 84443; 85025; 86592

== ENCOUNTER 2021-08-15 15:32 | Inpatient (IN) | payer MEDICARE ==
[~2021-08-15] VITALS: Ht 167.6 cm; Wt 102.1 kg
[~2021-08-15 15:32] MED LIST changes: +BUPR-50 PO; -CITA-144 PO; -DIVA-111 PO; -MAGN400T7 PO; +OLAN5TAB52 PO; -RISP2TAB45 PO
[2021-08-15 18:30] LABS: GLUCOMETER DEV NAME(LOC) POC.BV
[2021-08-15 20:00] VITALS: BP 103/72
[2021-08-15] MEDS ORDERED: PNEUMOCOCCAL VACCINE POLYVALENT 0.5 ML VIAL [PPSV23] IM. ONE (20:45)
[2021-08-15] MEDS: LORazepam 2 MG TABLET PO PRN (20:58)
[2021-08-15] MEDS: ZOLPIDEM TARTRATE 10 MG TABLET PO PRN (20:58)
[2021-08-16] VITALS (10 sets, daily range): BP systolic 115–133; BP diastolic 70–93
[2021-08-16 06:48] LABS: BASOPHILS % (AUTO) 0.9 % (0.0-2.0); EOSINOPHILS % (AUTO) 4.4 % (1.0-6.0); HEMATOCRIT 38.6 % (41-53); HEMOGLOBIN 12.9 g/dL (13.5-17.5); LYMPHOCYTES % (AUTO) 30.3 % (22.0-44.0); MEAN CORPUSCULAR HEMOGLOBIN 26.9 pg (26.0-34.0); MEAN CORPUSCULAR HGB CONC 33.3 G/dL (31.0-37.0); MEAN CORPUSCULAR VOLUME 81 fL (80-100); MONOCYTES # (AUTO) 0.7 K/uL (0.1-1.0); MONOCYTES % (AUTO) 10.7 % (2.0-9.0); NEUTROPHILS # (AUTO) 3.5 K/uL (1.8-7.7); NEUTROPHILS % (AUTO) 53.7 % (40.0-70.0); PLATELET COUNT (AUTO) 229 K/uL (150-450); RED BLOOD CELL COUNT(AUTO) 4.79 MIL/uL (4.50-5.90); RED CELL DISTRIBUTION WIDTH 15.5 % (11.5-14.5)
[2021-08-16 07:06] LABS: ALANINE AMINOTRANSFERASE 30 U/L (12-78); ALKALINE PHOSPHATASE 58 U/L (46-116); ANION GAP 6 mmol/L (8-16); ASPARTATE AMINOTRANSFERASE 19 U/L (15-37); BILIRUBIN,TOTAL 0.3 mg/dL (0.1-1.0); CALCIUM, TOTAL 8.4 mg/dL (8.8-10.5); CARBON DIOXIDE 25 mmol/L (22-29); CHLORIDE 104 mmol/L (98-107); CHOL/HDL RATIO 3.3 (4.2-7.3); CHOLESTEROL 128 mg/dL (131-200); CREATININE 0.79 mg/dL (0.60-1.30); GLOMERULAR FILTR. RATE CALC > 60 mL/min (>60); GLUCOSE,RANDOM 118 mg/dL (70-110); HDL CHOLESTEROL 39 mg/dL (40-60); LDL CHOL (CALC.) 71 mg/dL (0-130); POTASSIUM 3.4 mmol/L (3.5-5.1); SODIUM SERUM 135 mmol/L (136-145); TOTAL PROTEIN, SERUM 6.6 g/dL (6.4-8.2); TRIGLYCERIDES 91 mg/dL (15-150); UREA NITROGEN, BLOOD 10 mg/dL (7-18)
[2021-08-16] MEDS: OMEPRAZOLE 20 MG CAPSULE PO SCH (07:49)
[2021-08-16 07:50] LABS: HEMOGLOBIN A1C 6.3 % (3.8-5.6)
[2021-08-16] MEDS: ACETAMINOPHEN 325 MG TABLET PO PRN ×2 (07:58→16:36)
[2021-08-16] MEDS: LORazepam 2 MG TABLET PO PRN ×3 (11:22→21:16)
[2021-08-16] MEDS ORDERED: TraMADol HCL 50 MG TABLET PO PRN (12:45)
[2021-08-16] MEDS: TraMADol HCL 50 MG TABLET PO PRN (14:06)
[2021-08-16] MEDS ORDERED: CYANOCOBALAMIN 1,000 MCG/ML VIAL IM ONE (14:30)
[2021-08-16] MEDS ORDERED: GuaiFENesin/D-METHORPHAN [SUGAR-FREE] 200-20MG/10 ML SYRUP UDCUP PO PRN (14:45)
[2021-08-16] MEDS ORDERED: LOPERAMIDE HCL 2 MG CAPSULE PO PRN (14:45)
[2021-08-16] MEDS ORDERED: ALBUTEROL SULFATE HFA 90 MCG/PUFF 8 GM INHALER IH PRN (14:45)
[2021-08-16] MEDS ORDERED: MAGNESIUM HYDROXIDE SUSPENSION 30 ML UDCUP PO PRN (14:45)
[2021-08-16] MEDS ORDERED: DOCUSATE SODIUM 100 MG CAPSULE PO PRN (14:45)
[2021-08-16] MEDS ORDERED: PETROLATUM,WHITE 28 GM JELLY TP PRN (14:45)
[2021-08-16] MEDS ORDERED: ONDANSETRON HCL 4 MG TABLET PO PRN (14:45)
[2021-08-16] MEDS ORDERED: MAG HYDROX/AL HYDROX/SIMETH ES 30 ML SUSPENSION UDCUP PO PRN (14:45)
[2021-08-16] MEDS: MULTIVITAMINS WITH MINERALS, THERAPEUTIC TABLET PO SCH (15:24)
[2021-08-16] MEDS: FOLIC ACID 1 MG TABLET PO SCH (15:24)
[2021-08-16] MEDS: THIAMINE 100 MG TABLET PO SCH (16:35)
[2021-08-16] MEDS: MIRTAZAPINE 30 MG TABLET PO SCH (21:16)
[2021-08-16] MEDS: IBUPROFEN 400 MG TABLET PO PRN (21:17)
[2021-08-17] VITALS (10 sets, daily range): BP systolic 123–151; BP diastolic 73–91
[2021-08-17] MEDS ORDERED: LORazepam 2 MG TABLET PO PRN (07:00)
[2021-08-17] MEDS ORDERED: POTASSIUM CHLORIDE 20 MEQ ER TABLET PO ONE (08:00)
[2021-08-17] MEDS: FOLIC ACID 1 MG TABLET PO SCH (08:08)
[2021-08-17] MEDS: OMEPRAZOLE 20 MG CAPSULE PO SCH (08:08)
[2021-08-17] MEDS: MULTIVITAMINS WITH MINERALS, THERAPEUTIC TABLET PO SCH (08:08)
[2021-08-17] MEDS: THIAMINE 100 MG TABLET PO SCH ×2 (08:08→17:16)
[2021-08-17] MEDS: CITALOPRAM HYDROBROMIDE 10 MG TABLET PO SCH (08:09)
[2021-08-17] MEDS: LORazepam 2 MG TABLET PO SCH ×4 (08:09→21:42)
[2021-08-17] MEDS: TraMADol HCL 50 MG TABLET PO PRN (09:38)
[2021-08-17] MEDS: ACETAMINOPHEN 325 MG TABLET PO PRN (12:37)
[2021-08-17] MEDS: IBUPROFEN 400 MG TABLET PO PRN (17:17)
[2021-08-17] MEDS: MIRTAZAPINE 30 MG TABLET PO SCH (20:45)
[2021-08-18 00:41] VITALS: BP 117/68
[2021-08-18 07:34] LABS: ANION GAP 4 mmol/L (8-16); CALCIUM, TOTAL 8.3 mg/dL (8.8-10.5); CARBON DIOXIDE 30 mmol/L (22-29); CHLORIDE 104 mmol/L (98-107); CREATININE 0.67 mg/dL (0.60-1.30); GLOMERULAR FILTR. RATE CALC > 60 mL/min (>60); GLUCOSE,RANDOM 106 mg/dL (70-110); POTASSIUM 3.5 mmol/L (3.5-5.1); SODIUM SERUM 138 mmol/L (136-145); UREA NITROGEN, BLOOD 9 mg/dL (7-18)
[2021-08-18 07:48] LABS: AMPHET/METH SCREEN,URINE NEGATIVE (NEGATIVE); BARBITURATE SCREEN, URINE NEGATIVE (NEGATIVE); BENZODIAZEPINES SCREEN,URINE POSITIVE (NEGATIVE); CANNABINOID SCREEN,URINE POSITIVE (NEGATIVE); COCAINE SCREEN,URINE NEGATIVE (NEGATIVE); METHADONE SCREEN, URINE NEGATIVE (NEGATIVE); OPIATE SCREEN,URINE NEGATIVE (NEGATIVE)
[2021-08-18 07:49] LABS: PHENCYCLIDINE SCREEN,URINE NEGATIVE (NEGATIVE)
[2021-08-18] MEDS: CITALOPRAM HYDROBROMIDE 10 MG TABLET PO SCH (07:50)
[2021-08-18] MEDS: FOLIC ACID 1 MG TABLET PO SCH (07:51)
[2021-08-18] MEDS: MULTIVITAMINS WITH MINERALS, THERAPEUTIC TABLET PO SCH (07:51)
[2021-08-18] MEDS: LORazepam 2 MG TABLET PO SCH ×4 (07:51→20:34)
[2021-08-18] MEDS: THIAMINE 100 MG TABLET PO SCH ×2 (07:51→16:36)
[2021-08-18] MEDS: OMEPRAZOLE 20 MG CAPSULE PO SCH (07:52)
[2021-08-18 08:09] VITALS: BP 140/90
[2021-08-18 08:10] LABS: APPEARANCE,URINE HAZY (CLEAR); BILIRUBIN,URINE NEGATIVE (NEGATIVE); GLUCOSE, URINE (UA) 70-100 mg/dL (NEGATIVE); KETONES,URINE NEGATIVE (NEGATIVE); LEUKOCYTE ESTERASE ,URINE NEGATIVE (NEGATIVE); NITRATE,URINE NEGATIVE (NEGATIVE); OCCULT BLOOD,URINE NEGATIVE (NEGATIVE); PROTEIN,URINE NEGATIVE (NEGATIVE); UROBILINOGEN,URINE <=1.0 mg/dL (<=1.0)
[2021-08-18] MEDS: TraMADol HCL 50 MG TABLET PO PRN (08:19)
[2021-08-18] MEDS: ACETAMINOPHEN 325 MG TABLET PO PRN (09:26)
[2021-08-18 09:45] LABS: AMORPHOUS SEDIMENT,UR Many /LPF (None Seen); BACTERIA,URINE None Seen /HPF (None Seen); RBC,URINE 0-2 /HPF (0-2); WBC,URINE 0-2 /HPF (0-5)
[2021-08-18 12:10] VITALS: BP 150/80
[2021-08-18] MEDS: ARIPiprazole 10 MG TABLET PO SCH (13:08)
[2021-08-18 16:24] VITALS: BP 133/76
[2021-08-18] MEDS: IBUPROFEN 400 MG TABLET PO PRN (18:18)
[2021-08-18] MEDS: MIRTAZAPINE 30 MG TABLET PO SCH (20:33)
[2021-08-19 01:16] VITALS: BP 124/78
[2021-08-19] MEDS ORDERED: LORazepam 1 MG TABLET PO PRN (07:00)
[2021-08-19 08:19] VITALS: BP 163/90
[2021-08-19] MEDS: LORazepam 1 MG TABLET PO SCH ×4 (08:37→20:13)
[2021-08-19] MEDS: THIAMINE 100 MG TABLET PO SCH ×2 (08:37→16:07)
[2021-08-19] MEDS: MULTIVITAMINS WITH MINERALS, THERAPEUTIC TABLET PO SCH (08:37)
[2021-08-19] MEDS: CITALOPRAM HYDROBROMIDE 10 MG TABLET PO SCH (08:37)
[2021-08-19] MEDS: FOLIC ACID 1 MG TABLET PO SCH (08:37)
[2021-08-19] MEDS: ARIPiprazole 10 MG TABLET PO SCH (08:37)
[2021-08-19] MEDS: OMEPRAZOLE 20 MG CAPSULE PO SCH (08:37)
[2021-08-19] MEDS: NICOTINE 14 MG/24 HOUR PATCH TD PRN (15:14)
[2021-08-19 16:05] VITALS: BP 131/80
[2021-08-19] MEDS: MIRTAZAPINE 30 MG TABLET PO SCH (20:13)
[2021-08-19 20:49] VITALS: BP 138/75
[2021-08-19] MEDS: IBUPROFEN 400 MG TABLET PO PRN (20:49)
[2021-08-20] VITALS (7 sets, daily range): BP systolic 130–170; BP diastolic 86–103
[2021-08-20 06:55] LABS: GLUCOMETER DEV NAME(LOC) POC.BV
[2021-08-20] MEDS: THIAMINE 100 MG TABLET PO SCH ×2 (08:19→16:06)
[2021-08-20] MEDS: MULTIVITAMINS WITH MINERALS, THERAPEUTIC TABLET PO SCH (08:19)
[2021-08-20] MEDS: OMEPRAZOLE 20 MG CAPSULE PO SCH (08:19)
[2021-08-20] MEDS: FOLIC ACID 1 MG TABLET PO SCH (08:19)
[2021-08-20] MEDS: CITALOPRAM HYDROBROMIDE 10 MG TABLET PO SCH (08:19)
[2021-08-20] MEDS: ARIPiprazole 10 MG TABLET PO SCH (08:19)
[2021-08-20] MEDS: LORazepam 1 MG TABLET PO PRN ×3 (10:36→21:42)
[2021-08-20] MEDS: IBUPROFEN 400 MG TABLET PO PRN ×2 (10:36→21:41)
[2021-08-20] MEDS: TraMADol HCL 50 MG TABLET PO PRN (15:58)
[2021-08-20] MEDS ORDERED: HYDROCHLOROTHIAZIDE 25 MG TABLET PO SCH (16:15)
[2021-08-20] MEDS: CARVEDILOL 3.125 MG TABLET PO SCH (16:43)
[2021-08-20] MEDS: AmLODIPine BESYLATE 10 MG TABLET PO SCH (16:43)
[2021-08-20] MEDS: NICOTINE 14 MG/24 HOUR PATCH TD PRN (16:45)
[2021-08-20] MEDS: OLANZapine 5 MG RAPDIS TABLET PO PRN (16:46)
[2021-08-20] MEDS ORDERED: CAPTOPRIL 25 MG TABLET PO SCH (17:00)
[2021-08-20] MEDS: MIRTAZAPINE 30 MG TABLET PO SCH (20:03)
[2021-08-20] MEDS: CloNIDine HCL 0.1 MG TABLET PO PRN (20:39)
[2021-08-21 08:00] VITALS: BP 150/84
[2021-08-21] MEDS: MULTIVITAMINS WITH MINERALS, THERAPEUTIC TABLET PO SCH (08:06)
[2021-08-21] MEDS: AmLODIPine BESYLATE 10 MG TABLET PO SCH (08:06)
[2021-08-21] MEDS: FOLIC ACID 1 MG TABLET PO SCH (08:06)
[2021-08-21] MEDS: ARIPiprazole 10 MG TABLET PO SCH (08:06)
[2021-08-21] MEDS: OMEPRAZOLE 20 MG CAPSULE PO SCH (08:06)
[2021-08-21] MEDS: CITALOPRAM HYDROBROMIDE 10 MG TABLET PO SCH (08:07)
[2021-08-21] MEDS: LOSARTAN POTASSIUM 50 MG TABLET PO SCH (08:07)
[2021-08-21] MEDS: CARVEDILOL 3.125 MG TABLET PO SCH ×2 (08:07→17:07)
[2021-08-21] MEDS: THIAMINE 100 MG TABLET PO SCH ×2 (08:07→17:07)
[2021-08-21] MEDS: OLANZapine 5 MG RAPDIS TABLET PO PRN ×2 (11:07→18:24)
[2021-08-21] MEDS: IBUPROFEN 400 MG TABLET PO PRN (12:15)
[2021-08-21 16:11] VITALS: BP 102/61
[2021-08-21 17:11] VITALS: BP 130/89
[2021-08-21] MEDS: MIRTAZAPINE 30 MG TABLET PO SCH (20:27)
[2021-08-22 06:37] VITALS: BP 141/90
[2021-08-22] MEDS: IBUPROFEN 400 MG TABLET PO PRN ×2 (06:55→21:07)
[2021-08-22 07:04] VITALS: BP 141/90
[2021-08-22] MEDS: ARIPiprazole 10 MG TABLET PO SCH (08:56)
[2021-08-22] MEDS: CITALOPRAM HYDROBROMIDE 10 MG TABLET PO SCH (08:56)
[2021-08-22 08:57] VITALS: BP 148/76
[2021-08-22] MEDS: MULTIVITAMINS WITH MINERALS, THERAPEUTIC TABLET PO SCH (08:58)
[2021-08-22] MEDS: FOLIC ACID 1 MG TABLET PO SCH (08:58)
[2021-08-22] MEDS: AmLODIPine BESYLATE 10 MG TABLET PO SCH (08:58)
[2021-08-22] MEDS: THIAMINE 100 MG TABLET PO SCH ×2 (08:58→16:40)
[2021-08-22] MEDS: CARVEDILOL 3.125 MG TABLET PO SCH ×2 (08:58→16:40)
[2021-08-22] MEDS: LOSARTAN POTASSIUM 50 MG TABLET PO SCH (09:00)
[2021-08-22] MEDS: OMEPRAZOLE 20 MG CAPSULE PO SCH (09:13)
[2021-08-22] MEDS: OLANZapine 5 MG RAPDIS TABLET PO PRN ×2 (09:32→16:50)
[2021-08-22 16:09] VITALS: BP 118/64
[2021-08-22] MEDS: NICOTINE 14 MG/24 HOUR PATCH TD PRN (18:20)
[2021-08-22] MEDS: MIRTAZAPINE 30 MG TABLET PO SCH (20:28)
[2021-08-22] MEDS: ZOLPIDEM TARTRATE 10 MG TABLET PO PRN (20:44)
[2021-08-22] MEDS: CloNIDine HCL 0.1 MG TABLET PO PRN (21:16)
[2021-08-22 21:18] VITALS: BP 170/97
[2021-08-22 22:07] VITALS: BP 134/78
[2021-08-23 07:14] VITALS: BP 104/61
[2021-08-23] MEDS: CARVEDILOL 3.125 MG TABLET PO SCH ×2 (08:22→16:32)
[2021-08-23] MEDS: CITALOPRAM HYDROBROMIDE 10 MG TABLET PO SCH (08:22)
[2021-08-23] MEDS: OMEPRAZOLE 20 MG CAPSULE PO SCH (08:23)
[2021-08-23] MEDS: FOLIC ACID 1 MG TABLET PO SCH (08:23)
[2021-08-23] MEDS: LOSARTAN POTASSIUM 50 MG TABLET PO SCH (08:23)
[2021-08-23] MEDS: MULTIVITAMINS WITH MINERALS, THERAPEUTIC TABLET PO SCH (08:23)
[2021-08-23] MEDS: THIAMINE 100 MG TABLET PO SCH ×2 (08:23→16:32)
[2021-08-23] MEDS: AmLODIPine BESYLATE 10 MG TABLET PO SCH (08:23)
[2021-08-23] MEDS: ARIPiprazole 10 MG TABLET PO SCH (08:23)
[2021-08-23] MEDS: IBUPROFEN 400 MG TABLET PO PRN ×2 (08:24→16:32)
[2021-08-23 08:32] VITALS: BP_SYST 118; BP_SYST 71; BP_DIAS 118; BP_DIAS 70
[2021-08-23] MEDS: NICOTINE 14 MG/24 HOUR PATCH TD PRN (09:47)
[2021-08-23] MEDS: OLANZapine 5 MG RAPDIS TABLET PO PRN ×2 (10:35→18:07)
[2021-08-23] MEDS: TraMADol HCL 50 MG TABLET PO PRN (14:25)
[2021-08-23 14:33] VITALS: BP 146/94
[2021-08-23 16:06] VITALS: BP 129/98
[2021-08-23] MEDS: ZOLPIDEM TARTRATE 10 MG TABLET PO PRN (20:08)
[2021-08-23] MEDS: MIRTAZAPINE 30 MG TABLET PO SCH (20:08)
[2021-08-23] MEDS: ACETAMINOPHEN 325 MG TABLET PO PRN (20:52)
[2021-08-24 00:26] VITALS: BP 120/72
[2021-08-24 02:00] VITALS: BP 147/87
[2021-08-24] MEDS: IBUPROFEN 400 MG TABLET PO PRN ×3 (02:00→19:31)
[2021-08-24 04:15] VITALS: BP 129/94
[2021-08-24] MEDS: TraMADol HCL 50 MG TABLET PO PRN ×2 (04:25→16:31)
[2021-08-24] MEDS: THIAMINE 100 MG TABLET PO SCH ×2 (07:52→16:31)
[2021-08-24] MEDS: AmLODIPine BESYLATE 10 MG TABLET PO SCH (07:52)
[2021-08-24] MEDS: ARIPiprazole 10 MG TABLET PO SCH (07:52)
[2021-08-24] MEDS: CITALOPRAM HYDROBROMIDE 10 MG TABLET PO SCH (07:52)
[2021-08-24] MEDS: LOSARTAN POTASSIUM 50 MG TABLET PO SCH (07:52)
[2021-08-24] MEDS: MULTIVITAMINS WITH MINERALS, THERAPEUTIC TABLET PO SCH (07:52)
[2021-08-24] MEDS: FOLIC ACID 1 MG TABLET PO SCH (07:52)
[2021-08-24] MEDS: OMEPRAZOLE 20 MG CAPSULE PO SCH (07:57)
[2021-08-24] MEDS: CARVEDILOL 3.125 MG TABLET PO SCH ×2 (08:29→16:31)
[2021-08-24 09:14] VITALS: BP 146/83
[2021-08-24] MEDS: NICOTINE 14 MG/24 HOUR PATCH TD PRN (15:28)
[2021-08-24] MEDS: OLANZapine 5 MG RAPDIS TABLET PO PRN (15:33)
[2021-08-24 16:28] VITALS: BP 128/81
[2021-08-24 19:26] VITALS: BP 119/78
[2021-08-24] MEDS: MIRTAZAPINE 30 MG TABLET PO SCH (20:38)
[2021-08-24] MEDS: ZOLPIDEM TARTRATE 10 MG TABLET PO PRN (20:51)
[2021-08-25 08:07] VITALS: BP 144/90
[2021-08-25] MEDS: CARVEDILOL 3.125 MG TABLET PO SCH ×2 (08:57→16:28)
[2021-08-25] MEDS: FOLIC ACID 1 MG TABLET PO SCH (08:57)
[2021-08-25] MEDS: ACETAMINOPHEN 325 MG TABLET PO PRN (08:57)
[2021-08-25] MEDS: CITALOPRAM HYDROBROMIDE 10 MG TABLET PO SCH (08:57)
[2021-08-25] MEDS: ARIPiprazole 10 MG TABLET PO SCH (08:58)
[2021-08-25] MEDS: OMEPRAZOLE 20 MG CAPSULE PO SCH (08:58)
[2021-08-25] MEDS: AmLODIPine BESYLATE 10 MG TABLET PO SCH (08:58)
[2021-08-25] MEDS: LOSARTAN POTASSIUM 50 MG TABLET PO SCH (08:58)
[2021-08-25] MEDS: MULTIVITAMINS WITH MINERALS, THERAPEUTIC TABLET PO SCH (08:58)
[2021-08-25] MEDS: THIAMINE 100 MG TABLET PO SCH ×2 (08:58→16:28)
[2021-08-25] MEDS: OLANZapine 5 MG RAPDIS TABLET PO PRN (10:00)
[2021-08-25] MEDS: TraMADol HCL 50 MG TABLET PO PRN (12:46)
[2021-08-25 16:02] VITALS: BP 126/96
[2021-08-25] MEDS: NICOTINE 14 MG/24 HOUR PATCH TD PRN (16:02)
[2021-08-25] MEDS: IBUPROFEN 400 MG TABLET PO PRN (16:36)
[2021-08-25] MEDS: ZOLPIDEM TARTRATE 10 MG TABLET PO PRN (20:43)
[2021-08-25] MEDS: MIRTAZAPINE 30 MG TABLET PO SCH (20:44)
[2021-08-26 00:24] VITALS: BP 137/83
[2021-08-26] MEDS: ARIPiprazole 10 MG TABLET PO SCH (08:15)
[2021-08-26] MEDS: CARVEDILOL 3.125 MG TABLET PO SCH ×2 (08:16→16:10)
[2021-08-26] MEDS: MULTIVITAMINS WITH MINERALS, THERAPEUTIC TABLET PO SCH (08:16)
[2021-08-26] MEDS: OMEPRAZOLE 20 MG CAPSULE PO SCH (08:16)
[2021-08-26] MEDS: LOSARTAN POTASSIUM 50 MG TABLET PO SCH (08:16)
[2021-08-26] MEDS: CITALOPRAM HYDROBROMIDE 10 MG TABLET PO SCH (08:16)
[2021-08-26] MEDS: AmLODIPine BESYLATE 10 MG TABLET PO SCH (08:16)
[2021-08-26] MEDS: THIAMINE 100 MG TABLET PO SCH (08:16)
[2021-08-26 08:33] VITALS: BP 138/78
[2021-08-26] MEDS: IBUPROFEN 400 MG TABLET PO PRN (13:36)
[2021-08-26] MEDS: OLANZapine 5 MG RAPDIS TABLET PO PRN (13:36)
[2021-08-26 16:21] VITALS: BP 140/83
[2021-08-26] MEDS: LORazepam 2 MG TABLET PO PRN (18:10)
[2021-08-26] MEDS: ZOLPIDEM TARTRATE 10 MG TABLET PO PRN (20:32)
[2021-08-26] MEDS: MIRTAZAPINE 30 MG TABLET PO SCH (20:49)
[2021-08-26] MEDS: NICOTINE 14 MG/24 HOUR PATCH TD PRN (21:35)
[2021-08-27 01:14] VITALS: BP 132/78
[2021-08-27] MEDS: LORazepam 2 MG TABLET PO PRN ×2 (06:40→15:39)
[2021-08-27 08:00] VITALS: BP 155/102
[2021-08-27] MEDS: ARIPiprazole 10 MG TABLET PO SCH (08:24)
[2021-08-27] MEDS: CITALOPRAM HYDROBROMIDE 10 MG TABLET PO SCH (08:24)
[2021-08-27] MEDS: IBUPROFEN 400 MG TABLET PO PRN (08:25)
[2021-08-27] MEDS: OMEPRAZOLE 20 MG CAPSULE PO SCH (08:25)
[2021-08-27] MEDS: LOSARTAN POTASSIUM 50 MG TABLET PO SCH (08:26)
[2021-08-27] MEDS: MULTIVITAMINS WITH MINERALS, THERAPEUTIC TABLET PO SCH (08:26)
[2021-08-27] MEDS: AmLODIPine BESYLATE 10 MG TABLET PO SCH (08:26)
[2021-08-27] MEDS: CARVEDILOL 3.125 MG TABLET PO SCH ×2 (08:28→16:02)
[2021-08-27 09:50] VITALS: BP 137/96
[2021-08-27] MEDS: OLANZapine 5 MG RAPDIS TABLET PO PRN (12:56)
[2021-08-27 16:58] VITALS: BP 151/108
[2021-08-27] MEDS: TraZODone HCL 50 MG TABLET PO SCH (20:04)
[2021-08-27] MEDS: MIRTAZAPINE 30 MG TABLET PO SCH (20:04)
[2021-08-27 20:05] LABS: GLUCOMETER DEV NAME(LOC) POC.BV
[2021-08-27 20:10] VITALS: BP 142/97
[2021-08-27] MEDS: TraMADol HCL 50 MG TABLET PO PRN (20:17)
[2021-08-28 05:28] VITALS: BP 140/93
[2021-08-28 08:08] VITALS: BP 152/96
[2021-08-28] MEDS: CITALOPRAM HYDROBROMIDE 10 MG TABLET PO SCH (08:17)
[2021-08-28] MEDS: AmLODIPine BESYLATE 10 MG TABLET PO SCH (08:17)
[2021-08-28] MEDS: ARIPiprazole 10 MG TABLET PO SCH (08:17)
[2021-08-28] MEDS: OMEPRAZOLE 20 MG CAPSULE PO SCH (08:17)
[2021-08-28] MEDS: MULTIVITAMINS WITH MINERALS, THERAPEUTIC TABLET PO SCH (08:17)
[2021-08-28] MEDS: LOSARTAN POTASSIUM 50 MG TABLET PO SCH (08:18)
[2021-08-28] MEDS: CARVEDILOL 3.125 MG TABLET PO SCH ×2 (08:56→16:11)
[2021-08-28] MEDS: LORazepam 2 MG TABLET PO PRN ×2 (11:32→20:08)
[2021-08-28] MEDS: NICOTINE 14 MG/24 HOUR PATCH TD PRN (11:36)
[2021-08-28 16:09] VITALS: BP 137/85
[2021-08-28] MEDS: OLANZapine 5 MG RAPDIS TABLET PO PRN (16:11)
[2021-08-28] MEDS: TraZODone HCL 50 MG TABLET PO SCH (21:03)
[2021-08-28] MEDS: MIRTAZAPINE 30 MG TABLET PO SCH (21:03)
[2021-08-29 05:30] VITALS: BP 135/80
[2021-08-29 08:08] VITALS: BP 140/77
[2021-08-29] MEDS: ARIPiprazole 10 MG TABLET PO SCH (08:56)
[2021-08-29] MEDS: CARVEDILOL 3.125 MG TABLET PO SCH ×2 (08:57→16:05)
[2021-08-29] MEDS: OMEPRAZOLE 20 MG CAPSULE PO SCH (08:57)
[2021-08-29] MEDS: LOSARTAN POTASSIUM 50 MG TABLET PO SCH (08:57)
[2021-08-29] MEDS: AmLODIPine BESYLATE 10 MG TABLET PO SCH (08:57)
[2021-08-29] MEDS: CITALOPRAM HYDROBROMIDE 10 MG TABLET PO SCH (08:57)
[2021-08-29] MEDS: MULTIVITAMINS WITH MINERALS, THERAPEUTIC TABLET PO SCH (08:57)
[2021-08-29 12:03] VITALS: BP 137/90
[2021-08-29] MEDS: LORazepam 2 MG TABLET PO PRN ×2 (12:03→20:09)
[2021-08-29] MEDS: NICOTINE 14 MG/24 HOUR PATCH TD PRN (12:07)
[2021-08-29] MEDS: OLANZapine 5 MG RAPDIS TABLET PO PRN (13:16)
[2021-08-29 16:14] VITALS: BP 128/83
[2021-08-29 20:09] VITALS: BP 133/90
[2021-08-29] MEDS: MIRTAZAPINE 30 MG TABLET PO SCH (21:32)
[2021-08-29] MEDS: TraZODone HCL 50 MG TABLET PO SCH (21:32)
[2021-08-30 00:26] VITALS: BP 131/88
[2021-08-30 08:45] VITALS: BP 137/70
[2021-08-30] MEDS: LOSARTAN POTASSIUM 50 MG TABLET PO SCH (09:25)
[2021-08-30] MEDS: ARIPiprazole 10 MG TABLET PO SCH (09:25)
[2021-08-30] MEDS: CARVEDILOL 3.125 MG TABLET PO SCH ×2 (09:25→17:40)
[2021-08-30] MEDS: OMEPRAZOLE 20 MG CAPSULE PO SCH (09:25)
[2021-08-30] MEDS: MULTIVITAMINS WITH MINERALS, THERAPEUTIC TABLET PO SCH (09:25)
[2021-08-30] MEDS: CITALOPRAM HYDROBROMIDE 10 MG TABLET PO SCH (09:25)
[2021-08-30] MEDS: AmLODIPine BESYLATE 10 MG TABLET PO SCH (09:25)
[2021-08-30] MEDS: OLANZapine 5 MG RAPDIS TABLET PO PRN (11:36)
[2021-08-30] MEDS: LORazepam 2 MG TABLET PO PRN ×2 (12:10→20:06)
[2021-08-30] MEDS: NICOTINE 14 MG/24 HOUR PATCH TD PRN (13:51)
[2021-08-30 16:10] VITALS: BP 130/80
[2021-08-30 20:05] VITALS: BP 140/60
[2021-08-30] MEDS: ZOLPIDEM TARTRATE 10 MG TABLET PO PRN (20:06)
[2021-08-30] MEDS: BusPIRone HCL 5 MG TABLET PO SCH (20:07)
[2021-08-30] MEDS: TraZODone HCL 50 MG TABLET PO SCH (20:07)
[2021-08-30] MEDS: MIRTAZAPINE 30 MG TABLET PO SCH (20:07)
[2021-08-31 04:55] VITALS: BP 146/84
[2021-08-31 08:10] VITALS: BP 139/87
[2021-08-31] MEDS: MULTIVITAMINS WITH MINERALS, THERAPEUTIC TABLET PO SCH (09:23)
[2021-08-31] MEDS: ARIPiprazole 10 MG TABLET PO SCH (09:24)
[2021-08-31] MEDS: OMEPRAZOLE 20 MG CAPSULE PO SCH (09:24)
[2021-08-31] MEDS: BusPIRone HCL 5 MG TABLET PO SCH ×2 (09:24→20:07)
[2021-08-31] MEDS: AmLODIPine BESYLATE 10 MG TABLET PO SCH (09:24)
[2021-08-31] MEDS: CITALOPRAM HYDROBROMIDE 10 MG TABLET PO SCH (09:24)
[2021-08-31] MEDS: CARVEDILOL 3.125 MG TABLET PO SCH ×2 (09:25→16:03)
[2021-08-31] MEDS: LOSARTAN POTASSIUM 50 MG TABLET PO SCH (09:25)
[2021-08-31] MEDS: NICOTINE 14 MG/24 HOUR PATCH TD PRN (09:31)
[2021-08-31] MEDS: LORazepam 2 MG TABLET PO PRN (10:05)
[2021-08-31] MEDS: OLANZapine 5 MG RAPDIS TABLET PO PRN (16:03)
[2021-08-31 16:19] VITALS: BP 124/76
[2021-08-31] MEDS: TraZODone HCL 50 MG TABLET PO SCH (20:06)
[2021-08-31] MEDS: MIRTAZAPINE 30 MG TABLET PO SCH (20:07)
[2021-09-01 00:08] VITALS: BP 127/78
[2021-09-01 08:14] VITALS: BP 124/75
[2021-09-01] MEDS: ARIPiprazole 10 MG TABLET PO SCH (09:11)
[2021-09-01] MEDS: OMEPRAZOLE 20 MG CAPSULE PO SCH (09:11)
[2021-09-01] MEDS: CARVEDILOL 3.125 MG TABLET PO SCH (09:11)
[2021-09-01] MEDS: AmLODIPine BESYLATE 10 MG TABLET PO SCH (09:11)
[2021-09-01] MEDS: BusPIRone HCL 5 MG TABLET PO SCH (09:11)
[2021-09-01] MEDS: LOSARTAN POTASSIUM 50 MG TABLET PO SCH (09:11)
[2021-09-01] MEDS: MULTIVITAMINS WITH MINERALS, THERAPEUTIC TABLET PO SCH (09:11)
[2021-09-01] MEDS: CITALOPRAM HYDROBROMIDE 10 MG TABLET PO SCH (09:11)
[2021-09-01] MEDS: OLANZapine 5 MG RAPDIS TABLET PO PRN (11:55)
[2021-09-01] MEDS: NICOTINE 14 MG/24 HOUR PATCH TD PRN (13:28)
[2021-09-01 14:21] LABS: GLUCOMETER DEV NAME(LOC) POC.BV
[2021-09-01] MEDS ORDERED: BUSP5TAB20 PO ×2 (14:57→16:28)
[2021-09-01] MEDS ORDERED: TRAZ-252 PO ×2 (14:58→16:28)
[2021-09-01] MEDS ORDERED: MIRT30 PO ×2 (14:58→16:28)
[2021-09-01] MEDS ORDERED: ARIP10TA38 PO ×2 (14:59→16:28)
[2021-09-01] MEDS ORDERED: CITA10TA99 PO ×2 (14:59→16:28)
[2021-09-01] MEDS ORDERED: LOSA-382 PO (15:04)
[2021-09-01] MEDS ORDERED: AMLO-258 PO (15:04)
[2021-09-01] MEDS ORDERED: CARV3 PO (15:04)
== END 2021-09-01 16:00 | disposition home or self-care (01) | DRG 885 ==
LOC: UNDOADMIN 18:18 → B2X 18:18
PROVIDERS: ADMIT Psychiatry & Neurology Psychiatry; ATTEND Psychiatry & Neurology Psychiatry
PROC: 3E0234Z Introduction of Serum, Toxoid and Vaccine into Muscle, Percutaneous Approach (ICD-10-PCS; principal; 2021-08-15)
DX: F25.1 Schizoaffective disorder, depressive type (principal); R45.851 Suicidal ideations; J44.9 Chronic obstructive pulmonary disease, unspecified; I10 Essential (primary) hypertension; E87.6 Hypokalemia; Z20.822 Contact with and (suspected) exposure to COVID-19; F19.10 Other psychoactive substance abuse, uncomplicated; Y90.9 Presence of alcohol in blood, level not specified; F41.9 Anxiety disorder, unspecified; E11.9 Type 2 diabetes mellitus without complications; D64.9 Anemia, unspecified; F10.10 Alcohol abuse, uncomplicated; Z59.00 Homelessness unspecified; Z88.5 Allergy status to narcotic agent; Z88.8 Allergy status to other drugs, medicaments and biological substances; Z71.41 Alcohol abuse counseling and surveillance of alcoholic; Z71.51 Drug abuse counseling and surveillance of drug abuser; Z91.51 Personal history of suicidal behavior; Z23 Encounter for immunization; Z79.84 Long term (current) use of oral hypoglycemic drugs
CPT/HCPCS: 80048; 80053; 80061; 80307; 81001; 83036; 85025; 90732; J3420

== ENCOUNTER 2022-04-21 23:09 | Inpatient (IN) | payer MEDICARE ==
[~2022-04-21] VITALS: Ht 167.6 cm; Wt 95.1 kg
[~2022-04-21 23:09] MED LIST changes: +AMLO-258 PO; +ARIP10TA38 PO; -BUPR-50 PO; +BUSP5TAB20 PO; -CAPT25TA3 PO; +CARV3 PO; +CITA10TA99 PO; -HYDR25TA PO; +LOSA-382 PO; +MIRT-149 PO; -OLAN5TAB52 PO; +TRAZ-252 PO
[2022-04-21 23:43] LABS: BASOPHILS % (AUTO) 0.9 % (0.0-2.0); EOSINOPHILS % (AUTO) 4.2 % (1.0-6.0); HEMATOCRIT 35.3 % (41-53); LYMPHOCYTES # (AUTO) 1.3 K/uL (1.0-4.8); LYMPHOCYTES % (AUTO) 17.2 % (22.0-44.0); MEAN CORPUSCULAR HEMOGLOBIN 28.7 pg (26.0-34.0); MEAN CORPUSCULAR HGB CONC 34.1 G/dL (31.0-37.0); MEAN CORPUSCULAR VOLUME 84 fL (80-100); MONOCYTES # (AUTO) 0.6 K/uL (0.1-1.0); MONOCYTES % (AUTO) 8.5 % (2.0-9.0); NEUTROPHILS # (AUTO) 5.1 K/uL (1.8-7.7); NEUTROPHILS % (AUTO) 69.2 % (40.0-70.0); PLATELET COUNT (AUTO) 279 K/uL (150-450); RED BLOOD CELL COUNT(AUTO) 4.19 MIL/uL (4.50-5.90); RED CELL DISTRIBUTION WIDTH 14.3 % (11.5-14.5)
[2022-04-21 23:57] LABS: ANION GAP 7 mmol/L (8-16); CALCIUM, TOTAL 8.3 mg/dL (8.8-10.5); CARBON DIOXIDE 26 mmol/L (22-29); CHLORIDE 102 mmol/L (98-107); GLOMERULAR FILTR. RATE CALC > 60 mL/min (>60); GLUCOSE,RANDOM 120 mg/dL (70-110); POTASSIUM 3.6 mmol/L (3.5-5.1); SODIUM SERUM 135 mmol/L (136-145); UREA NITROGEN, BLOOD 15 mg/dL (7-18)
[2022-04-22 00:02] LABS: ALANINE AMINOTRANSFERASE 36 U/L (12-78); ALBUMIN 3.2 g/dL (3.4-5.0); ALKALINE PHOSPHATASE 68 U/L (46-116); ASPARTATE AMINOTRANSFERASE 38 U/L (15-37); BILIRUBIN,TOTAL 0.3 mg/dL (0.1-1.0); TOTAL PROTEIN, SERUM 6.9 g/dL (6.4-8.2)
[2022-04-22] MEDS ORDERED: HALOPERIDOL 5 MG TABLET PO PRN (01:30)
[2022-04-22 01:57] LABS: COVID AG,FIA SOURCE NASAL SWAB
[2022-04-22 03:29] LABS: AMPHET/METH SCREEN,URINE POSITIVE (NEGATIVE); BARBITURATE SCREEN, URINE NEGATIVE (NEGATIVE); BENZODIAZEPINES SCREEN,URINE POSITIVE (NEGATIVE); CANNABINOID SCREEN,URINE POSITIVE (NEGATIVE); COCAINE SCREEN,URINE POSITIVE (NEGATIVE); METHADONE SCREEN, URINE NEGATIVE (NEGATIVE); OPIATE SCREEN,URINE NEGATIVE (NEGATIVE)
[2022-04-22 03:34] LABS: PHENCYCLIDINE SCREEN,URINE NEGATIVE (NEGATIVE)
[2022-04-22 03:42] LABS: APPEARANCE,URINE CLEAR (CLEAR); BILIRUBIN,URINE NEGATIVE (NEGATIVE); GLUCOSE, URINE (UA) 70-100 mg/dL (NEGATIVE); LEUKOCYTE ESTERASE ,URINE NEGATIVE (NEGATIVE); NITRATE,URINE NEGATIVE (NEGATIVE); OCCULT BLOOD,URINE NEGATIVE (NEGATIVE); PROTEIN,URINE TRACE mg/dL (NEGATIVE); SPECIFIC GRAVITIY, URINE 1.017 (1.003-1.030); UROBILINOGEN,URINE <=1.0 mg/dL (<=1.0)
[2022-04-22 03:52] LABS: BACTERIA,URINE None Seen /HPF (None Seen); RBC,URINE 0-2 /HPF (0-2); WBC,URINE 0-2 /HPF (0-5)
[2022-04-22] MEDS ORDERED: INFLUENZA VIRUS VACCINE QVS 2022-23 (6MO+)/PF 60 MCG/0.5 ML SYRINGE IM. ONE (05:45)
[2022-04-22 06:33] VITALS: BP 142/87
[2022-04-22] MEDS ORDERED: LOPERAMIDE HCL 2 MG CAPSULE PO PRN (06:45)
[2022-04-22] MEDS ORDERED: PETROLATUM,WHITE 28 GM JELLY TP PRN (06:45)
[2022-04-22] MEDS ORDERED: DOCUSATE SODIUM 100 MG CAPSULE PO PRN (06:45)
[2022-04-22] MEDS ORDERED: ONDANSETRON HCL 4 MG TABLET PO PRN (06:45)
[2022-04-22] MEDS ORDERED: CloNIDine HCL 0.1 MG TABLET PO PRN (06:45)
[2022-04-22] MEDS ORDERED: ALBUTEROL SULFATE HFA 90 MCG/PUFF 8 GM INHALER IH PRN (06:45)
[2022-04-22] MEDS ORDERED: OLANZapine 5 MG TABLET PO PRN (06:45)
[2022-04-22] MEDS ORDERED: MAGNESIUM HYDROXIDE SUSPENSION 30 ML UDCUP PO PRN (06:45)
[2022-04-22] MEDS ORDERED: MAG HYDROX/AL HYDROX/SIMETH ES 30 ML SUSPENSION UDCUP PO PRN (06:45)
[2022-04-22] MEDS ORDERED: GuaiFENesin/D-METHORPHAN [SUGAR-FREE] 200-20MG/10 ML SYRUP UDCUP PO PRN (06:45)
[2022-04-22] MEDS ORDERED: NICOTINE 14 MG/24 HOUR PATCH TD PRN (06:45)
[2022-04-22] MEDS: AmLODIPine BESYLATE 10 MG TABLET PO SCH (09:30)
[2022-04-22] MEDS: CARVEDILOL 3.125 MG TABLET PO SCH ×2 (09:30→17:20)
[2022-04-22] MEDS: LOSARTAN POTASSIUM 50 MG TABLET PO SCH (09:30)
[2022-04-22 09:45] VITALS: BP 158/84
[2022-04-22] MEDS: IBUPROFEN 400 MG TABLET PO PRN ×2 (09:53→20:50)
[2022-04-22] MEDS: ACETAMINOPHEN 325 MG TABLET PO PRN ×2 (11:11→19:13)
[2022-04-22] MEDS ORDERED: ChlorproMAZINE HCL 50 MG TABLET PO PRN (12:00)
[2022-04-22] MEDS: CITALOPRAM HYDROBROMIDE 10 MG TABLET PO SCH (17:20)
[2022-04-22] MEDS: BusPIRone HCL 10 MG TABLET PO SCH (17:20)
[2022-04-22] MEDS: ARIPiprazole 10 MG TABLET PO SCH (17:25)
[2022-04-22] MEDS: LORazepam 2 MG TABLET PO PRN (19:02)
[2022-04-22 20:30] VITALS: BP 125/76
[2022-04-22] MEDS: MIRTAZAPINE 30 MG TABLET PO SCH (20:48)
[2022-04-22] MEDS: TraZODone HCL 50 MG TABLET PO SCH (20:48)
[2022-04-23 08:50] VITALS: BP 141/77
[2022-04-23] MEDS: ARIPiprazole 10 MG TABLET PO SCH ×2 (08:52→09:00)
[2022-04-23] MEDS: BusPIRone HCL 10 MG TABLET PO SCH ×2 (08:52→16:19)
[2022-04-23] MEDS: LOSARTAN POTASSIUM 50 MG TABLET PO SCH (08:53)
[2022-04-23] MEDS: CARVEDILOL 3.125 MG TABLET PO SCH ×2 (08:53→16:19)
[2022-04-23] MEDS: AmLODIPine BESYLATE 10 MG TABLET PO SCH (08:53)
[2022-04-23] MEDS: CITALOPRAM HYDROBROMIDE 10 MG TABLET PO SCH (08:53)
[2022-04-23] MEDS: IBUPROFEN 400 MG TABLET PO PRN ×2 (10:40→20:25)
[2022-04-23] MEDS: LORazepam 2 MG TABLET PO PRN ×3 (10:48→20:24)
[2022-04-23] MEDS: OMEPRAZOLE 20 MG CAPSULE PO SCH (15:13)
[2022-04-23 20:06] VITALS: BP 152/95
[2022-04-23] MEDS: MIRTAZAPINE 30 MG TABLET PO SCH (20:24)
[2022-04-23] MEDS: TraZODone HCL 50 MG TABLET PO SCH (20:24)
[2022-04-24] MEDS: LORazepam 2 MG TABLET PO PRN ×4 (01:49→17:46)
[2022-04-24] MEDS: CITALOPRAM HYDROBROMIDE 10 MG TABLET PO SCH (08:36)
[2022-04-24] MEDS: CARVEDILOL 3.125 MG TABLET PO SCH ×2 (08:37→17:19)
[2022-04-24] MEDS: AmLODIPine BESYLATE 10 MG TABLET PO SCH (08:38)
[2022-04-24] MEDS: ACETAMINOPHEN 325 MG TABLET PO PRN (08:38)
[2022-04-24] MEDS: OMEPRAZOLE 20 MG CAPSULE PO SCH (08:39)
[2022-04-24] MEDS: LOSARTAN POTASSIUM 50 MG TABLET PO SCH (08:39)
[2022-04-24] MEDS: BusPIRone HCL 10 MG TABLET PO SCH ×2 (08:39→17:19)
[2022-04-24] MEDS: IBUPROFEN 400 MG TABLET PO PRN (13:34)
[2022-04-24 17:26] VITALS: BP_DIAS 146
[2022-04-24 17:46] VITALS: BP 166/100
[2022-04-24 20:03] VITALS: BP 152/96
[2022-04-24] MEDS: TraZODone HCL 50 MG TABLET PO SCH (20:16)
[2022-04-24] MEDS: MIRTAZAPINE 30 MG TABLET PO SCH (20:17)
[2022-04-25 04:51] VITALS: BP 172/107
[2022-04-25 05:51] VITALS: BP 132/79
[2022-04-25 07:24] LABS: HEMOGLOBIN A1C 5.6 % (3.8-5.6)
[2022-04-25 07:47] LABS: CHOL/HDL RATIO 2.5 (4.2-7.3); FREE T4 (FREE THYROXINE) 0.87 ng/dL (0.76-1.46); THYROID STIMULATING HORMONE 0.35 uIU/mL (0.36-3.74)
[2022-04-25 08:14] VITALS: BP 125/84
[2022-04-25] MEDS: AmLODIPine BESYLATE 10 MG TABLET PO SCH (09:28)
[2022-04-25] MEDS: OMEPRAZOLE 20 MG CAPSULE PO SCH (09:29)
[2022-04-25] MEDS: CITALOPRAM HYDROBROMIDE 10 MG TABLET PO SCH (09:48)
[2022-04-25] MEDS: BusPIRone HCL 10 MG TABLET PO SCH ×2 (09:49→16:34)
[2022-04-25] MEDS: CARVEDILOL 3.125 MG TABLET PO SCH ×2 (09:49→16:34)
[2022-04-25] MEDS: LOSARTAN POTASSIUM 50 MG TABLET PO SCH (09:49)
[2022-04-25] MEDS: LORazepam 2 MG TABLET PO PRN ×2 (11:11→17:27)
[2022-04-25 16:51] VITALS: BP 143/91
[2022-04-25] MEDS: MIRTAZAPINE 30 MG TABLET PO SCH (20:56)
[2022-04-25] MEDS: TraZODone HCL 50 MG TABLET PO SCH (20:56)
[2022-04-25 20:57] VITALS: BP 117/67
[2022-04-26] MEDS: ARIPiprazole 10 MG TABLET PO SCH (09:42)
[2022-04-26] MEDS: BusPIRone HCL 10 MG TABLET PO SCH ×2 (09:43→16:26)
[2022-04-26] MEDS: CITALOPRAM HYDROBROMIDE 10 MG TABLET PO SCH (09:44)
[2022-04-26] MEDS: OMEPRAZOLE 20 MG CAPSULE PO SCH (09:44)
[2022-04-26] MEDS: CARVEDILOL 3.125 MG TABLET PO SCH ×2 (09:44→16:26)
[2022-04-26] MEDS: AmLODIPine BESYLATE 10 MG TABLET PO SCH (09:44)
[2022-04-26] MEDS: LOSARTAN POTASSIUM 50 MG TABLET PO SCH (09:45)
[2022-04-26] MEDS: LORazepam 2 MG TABLET PO PRN ×2 (09:51→17:18)
[2022-04-26 15:04] VITALS: BP 117/64
[2022-04-26 16:20] VITALS: BP 145/79
[2022-04-26 20:21] VITALS: BP 122/73
[2022-04-26] MEDS: TraZODone HCL 50 MG TABLET PO SCH (20:31)
[2022-04-26] MEDS: MIRTAZAPINE 30 MG TABLET PO SCH (20:31)
[2022-04-27 08:08] VITALS: BP 143/85
[2022-04-27] MEDS: BusPIRone HCL 10 MG TABLET PO SCH ×2 (08:24→16:33)
[2022-04-27] MEDS: CITALOPRAM HYDROBROMIDE 10 MG TABLET PO SCH (08:24)
[2022-04-27] MEDS: LORazepam 2 MG TABLET PO PRN ×3 (08:25→20:38)
[2022-04-27] MEDS: ARIPiprazole 10 MG TABLET PO SCH (08:25)
[2022-04-27] MEDS: LOSARTAN POTASSIUM 50 MG TABLET PO SCH (08:25)
[2022-04-27] MEDS: CARVEDILOL 3.125 MG TABLET PO SCH ×2 (08:25→16:33)
[2022-04-27] MEDS: OMEPRAZOLE 20 MG CAPSULE PO SCH (08:25)
[2022-04-27] MEDS: AmLODIPine BESYLATE 10 MG TABLET PO SCH (08:25)
[2022-04-27] MEDS: IBUPROFEN 400 MG TABLET PO PRN (12:24)
[2022-04-27 16:33] VITALS: BP 120/70
[2022-04-27 17:21] LABS: GLUCOMETER DEV NAME(LOC) POC.BV
[2022-04-27] MEDS: MIRTAZAPINE 30 MG TABLET PO SCH (20:39)
[2022-04-27] MEDS: TraZODone HCL 50 MG TABLET PO SCH (20:39)
[2022-04-27 21:05] VITALS: BP 134/78
[2022-04-28] MEDS: CITALOPRAM HYDROBROMIDE 10 MG TABLET PO SCH (08:30)
[2022-04-28] MEDS: ARIPiprazole 10 MG TABLET PO SCH (08:31)
[2022-04-28] MEDS: CARVEDILOL 3.125 MG TABLET PO SCH ×2 (08:31→16:52)
[2022-04-28] MEDS: OMEPRAZOLE 20 MG CAPSULE PO SCH (08:31)
[2022-04-28] MEDS: AmLODIPine BESYLATE 10 MG TABLET PO SCH (08:31)
[2022-04-28] MEDS: LORazepam 2 MG TABLET PO PRN ×2 (08:31→16:52)
[2022-04-28] MEDS: LOSARTAN POTASSIUM 50 MG TABLET PO SCH (08:31)
[2022-04-28] MEDS: BusPIRone HCL 10 MG TABLET PO SCH ×3 (08:31→16:52)
[2022-04-28 08:45] VITALS: BP 127/76
[2022-04-28] MEDS: HydrOXYzine PAMOATE 25 MG CAPSULE PO PRN (11:10)
[2022-04-28 20:13] VITALS: BP 125/86
[2022-04-28] MEDS: MIRTAZAPINE 30 MG TABLET PO SCH (20:13)
[2022-04-28] MEDS: TraZODone HCL 50 MG TABLET PO SCH (20:13)
[2022-04-28] MEDS: IBUPROFEN 400 MG TABLET PO PRN (20:13)
[2022-04-28 21:25] VITALS: BP 125/86
[2022-04-29 08:15] VITALS: BP 120/72
[2022-04-29] MEDS: LOSARTAN POTASSIUM 50 MG TABLET PO SCH (09:27)
[2022-04-29] MEDS: AmLODIPine BESYLATE 10 MG TABLET PO SCH (09:27)
[2022-04-29] MEDS: OMEPRAZOLE 20 MG CAPSULE PO SCH (09:28)
[2022-04-29] MEDS: CITALOPRAM HYDROBROMIDE 10 MG TABLET PO SCH (09:28)
[2022-04-29] MEDS: CARVEDILOL 3.125 MG TABLET PO SCH ×2 (09:28→16:35)
[2022-04-29] MEDS: BusPIRone HCL 10 MG TABLET PO SCH ×3 (09:28→16:35)
[2022-04-29] MEDS: ARIPiprazole 10 MG TABLET PO SCH (09:28)
[2022-04-29] MEDS: LORazepam 2 MG TABLET PO PRN ×2 (10:08→16:35)
[2022-04-29] MEDS: ACETAMINOPHEN 325 MG TABLET PO PRN (12:26)
[2022-04-29] MEDS: HydrOXYzine PAMOATE 25 MG CAPSULE PO PRN (18:54)
[2022-04-29] MEDS: TraZODone HCL 50 MG TABLET PO SCH (20:31)
[2022-04-29] MEDS: MIRTAZAPINE 30 MG TABLET PO SCH (20:33)
[2022-04-29 21:14] VITALS: BP 110/80
[2022-04-30] MEDS: LOSARTAN POTASSIUM 50 MG TABLET PO SCH (08:51)
[2022-04-30] MEDS: AmLODIPine BESYLATE 10 MG TABLET PO SCH (08:52)
[2022-04-30] MEDS: CITALOPRAM HYDROBROMIDE 10 MG TABLET PO SCH (08:52)
[2022-04-30] MEDS: CARVEDILOL 3.125 MG TABLET PO SCH ×2 (08:52→18:54)
[2022-04-30] MEDS: OMEPRAZOLE 20 MG CAPSULE PO SCH (08:52)
[2022-04-30] MEDS: ARIPiprazole 10 MG TABLET PO SCH (08:52)
[2022-04-30] MEDS: BusPIRone HCL 10 MG TABLET PO SCH ×3 (08:53→18:54)
[2022-04-30] MEDS: IBUPROFEN 400 MG TABLET PO PRN (09:19)
[2022-04-30 10:21] LABS: GLUCOMETER DEV NAME(LOC) POC.BV
[2022-04-30 10:26] VITALS: BP 151/94
[2022-04-30] MEDS ORDERED: BENZOCAINE/MENTHOL LOZENGE PO PRN (11:00)
[2022-04-30] MEDS: LORazepam 2 MG TABLET PO PRN ×2 (11:38→21:00)
[2022-04-30 12:01] VITALS: BP 143/76
[2022-04-30 18:53] VITALS: BP 143/88
[2022-04-30] MEDS: MIRTAZAPINE 30 MG TABLET PO SCH (20:04)
[2022-04-30] MEDS: TraZODone HCL 50 MG TABLET PO SCH (20:04)
[2022-04-30 20:13] VITALS: BP 141/85
[2022-04-30] MEDS: ZOLPIDEM TARTRATE 10 MG TABLET PO PRN (21:00)
[2022-05-01 09:12] VITALS: BP 143/98
[2022-05-01] MEDS: CARVEDILOL 3.125 MG TABLET PO SCH ×2 (09:20→16:28)
[2022-05-01] MEDS: ARIPiprazole 10 MG TABLET PO SCH (09:20)
[2022-05-01] MEDS: OMEPRAZOLE 20 MG CAPSULE PO SCH (09:20)
[2022-05-01] MEDS: LOSARTAN POTASSIUM 50 MG TABLET PO SCH (09:21)
[2022-05-01] MEDS: CITALOPRAM HYDROBROMIDE 10 MG TABLET PO SCH (09:21)
[2022-05-01] MEDS: AmLODIPine BESYLATE 10 MG TABLET PO SCH (09:21)
[2022-05-01] MEDS: BusPIRone HCL 10 MG TABLET PO SCH ×3 (09:21→16:28)
[2022-05-01] MEDS: LORazepam 2 MG TABLET PO PRN ×2 (11:09→17:26)
[2022-05-01 11:10] VITALS: BP 139/89
[2022-05-01] MEDS: IBUPROFEN 400 MG TABLET PO PRN (11:10)
[2022-05-01 16:26] VITALS: BP 137/90
[2022-05-01 20:02] VITALS: BP 127/90
[2022-05-01] MEDS: TraZODone HCL 50 MG TABLET PO SCH (21:21)
[2022-05-01] MEDS: MIRTAZAPINE 30 MG TABLET PO SCH (21:21)
[2022-05-01] MEDS: ZOLPIDEM TARTRATE 10 MG TABLET PO PRN (21:33)
[2022-05-02] MEDS: BusPIRone HCL 10 MG TABLET PO SCH ×3 (08:24→17:01)
[2022-05-02] MEDS: ARIPiprazole 10 MG TABLET PO SCH (08:24)
[2022-05-02] MEDS: AmLODIPine BESYLATE 10 MG TABLET PO SCH (08:24)
[2022-05-02] MEDS: OMEPRAZOLE 20 MG CAPSULE PO SCH (08:24)
[2022-05-02] MEDS: LORazepam 2 MG TABLET PO PRN ×2 (08:25→17:01)
[2022-05-02] MEDS: CARVEDILOL 3.125 MG TABLET PO SCH ×2 (08:25→17:01)
[2022-05-02] MEDS: LOSARTAN POTASSIUM 50 MG TABLET PO SCH (08:25)
[2022-05-02] MEDS: CITALOPRAM HYDROBROMIDE 10 MG TABLET PO SCH (08:26)
[2022-05-02 09:01] VITALS: BP 159/97
[2022-05-02] MEDS: HydrOXYzine PAMOATE 25 MG CAPSULE PO PRN (12:46)
[2022-05-02 13:30] VITALS: BP 138/87
[2022-05-02] MEDS: TraZODone HCL 50 MG TABLET PO SCH (20:14)
[2022-05-02] MEDS: ZOLPIDEM TARTRATE 10 MG TABLET PO PRN (20:15)
[2022-05-02] MEDS: MIRTAZAPINE 30 MG TABLET PO SCH (20:15)
[2022-05-02 20:46] VITALS: BP 146/94
[2022-05-03] MEDS: CARVEDILOL 3.125 MG TABLET PO SCH ×2 (08:40→16:37)
[2022-05-03] MEDS: OMEPRAZOLE 20 MG CAPSULE PO SCH (08:40)
[2022-05-03] MEDS: LOSARTAN POTASSIUM 50 MG TABLET PO SCH (08:40)
[2022-05-03] MEDS: ARIPiprazole 10 MG TABLET PO SCH (08:40)
[2022-05-03] MEDS: AmLODIPine BESYLATE 10 MG TABLET PO SCH (08:40)
[2022-05-03] MEDS: BusPIRone HCL 10 MG TABLET PO SCH ×3 (08:40→16:37)
[2022-05-03] MEDS: CITALOPRAM HYDROBROMIDE 10 MG TABLET PO SCH (08:41)
[2022-05-03 08:50] VITALS: BP 130/79
[2022-05-03] MEDS: LORazepam 2 MG TABLET PO PRN ×2 (12:30→22:15)
[2022-05-03 16:43] VITALS: BP 136/78
[2022-05-03 20:05] VITALS: BP 107/68
[2022-05-03] MEDS: MIRTAZAPINE 30 MG TABLET PO SCH (20:27)
[2022-05-03] MEDS: TraZODone HCL 50 MG TABLET PO SCH (20:27)
[2022-05-03] MEDS: ZOLPIDEM TARTRATE 10 MG TABLET PO PRN (20:54)
[2022-05-04 08:24] VITALS: BP 130/74
[2022-05-04] MEDS: OMEPRAZOLE 20 MG CAPSULE PO SCH (08:50)
[2022-05-04] MEDS: CITALOPRAM HYDROBROMIDE 10 MG TABLET PO SCH (08:50)
[2022-05-04] MEDS: ARIPiprazole 10 MG TABLET PO SCH (08:50)
[2022-05-04] MEDS: AmLODIPine BESYLATE 10 MG TABLET PO SCH (08:50)
[2022-05-04 08:51] LABS: GLUCOMETER DEV NAME(LOC) POC.BV
[2022-05-04] MEDS: LOSARTAN POTASSIUM 50 MG TABLET PO SCH (08:51)
[2022-05-04] MEDS: BusPIRone HCL 10 MG TABLET PO SCH ×3 (08:51→16:38)
[2022-05-04] MEDS: CARVEDILOL 3.125 MG TABLET PO SCH ×2 (08:51→16:38)
[2022-05-04] MEDS: LORazepam 2 MG TABLET PO PRN ×2 (10:00→18:24)
[2022-05-04] MEDS: MIRTAZAPINE 30 MG TABLET PO SCH (20:35)
[2022-05-04] MEDS: TraZODone HCL 50 MG TABLET PO SCH (20:35)
[2022-05-04 20:43] VITALS: BP 128/90
[2022-05-04] MEDS: ZOLPIDEM TARTRATE 10 MG TABLET PO PRN ×2 (20:55→21:07)
[2022-05-05 08:22] VITALS: BP 146/71
[2022-05-05] MEDS: ARIPiprazole 10 MG TABLET PO SCH (08:41)
[2022-05-05] MEDS: OMEPRAZOLE 20 MG CAPSULE PO SCH (08:41)
[2022-05-05] MEDS: CARVEDILOL 3.125 MG TABLET PO SCH ×2 (08:42→16:19)
[2022-05-05] MEDS: AmLODIPine BESYLATE 10 MG TABLET PO SCH (08:42)
[2022-05-05] MEDS: BusPIRone HCL 10 MG TABLET PO SCH ×3 (08:42→16:19)
[2022-05-05] MEDS: LOSARTAN POTASSIUM 50 MG TABLET PO SCH (08:42)
[2022-05-05] MEDS: CITALOPRAM HYDROBROMIDE 10 MG TABLET PO SCH (08:42)
[2022-05-05] MEDS: LORazepam 2 MG TABLET PO PRN (10:50)
[2022-05-05 16:00] VITALS: BP 132/80
[2022-05-05] MEDS: HydrOXYzine PAMOATE 25 MG CAPSULE PO PRN (18:04)
[2022-05-05] MEDS: MIRTAZAPINE 30 MG TABLET PO SCH (20:02)
[2022-05-05] MEDS: TraZODone HCL 50 MG TABLET PO SCH (20:02)
[2022-05-05 20:31] VITALS: BP 131/80
[2022-05-05] MEDS: ZOLPIDEM TARTRATE 10 MG TABLET PO PRN (21:03)
[2022-05-06 08:06] VITALS: BP 136/89
[2022-05-06] MEDS: LOSARTAN POTASSIUM 50 MG TABLET PO SCH (08:12)
[2022-05-06] MEDS: AmLODIPine BESYLATE 10 MG TABLET PO SCH (08:12)
[2022-05-06] MEDS: CITALOPRAM HYDROBROMIDE 10 MG TABLET PO SCH (08:12)
[2022-05-06] MEDS: BusPIRone HCL 10 MG TABLET PO SCH ×3 (08:13→16:03)
[2022-05-06] MEDS: ARIPiprazole 10 MG TABLET PO SCH (08:13)
[2022-05-06] MEDS: CARVEDILOL 3.125 MG TABLET PO SCH ×2 (08:13→16:03)
[2022-05-06] MEDS: OMEPRAZOLE 20 MG CAPSULE PO SCH (08:13)
[2022-05-06] MEDS: LORazepam 2 MG TABLET PO PRN (09:34)
[2022-05-06 16:00] VITALS: BP 136/80
[2022-05-06] MEDS: IBUPROFEN 400 MG TABLET PO PRN (17:17)
[2022-05-06] MEDS: HydrOXYzine PAMOATE 25 MG CAPSULE PO PRN (17:17)
[2022-05-06] MEDS: TraZODone HCL 50 MG TABLET PO SCH (20:10)
[2022-05-06] MEDS: MIRTAZAPINE 30 MG TABLET PO SCH (20:10)
[2022-05-06] MEDS: ZOLPIDEM TARTRATE 10 MG TABLET PO PRN (20:55)
[2022-05-06 23:56] VITALS: BP 136/80
[2022-05-07] MEDS: LORazepam 2 MG TABLET PO PRN ×2 (07:08→19:23)
[2022-05-07 08:28] VITALS: BP 128/81
[2022-05-07] MEDS: OMEPRAZOLE 20 MG CAPSULE PO SCH (08:29)
[2022-05-07] MEDS: AmLODIPine BESYLATE 10 MG TABLET PO SCH (08:29)
[2022-05-07] MEDS: LOSARTAN POTASSIUM 50 MG TABLET PO SCH (08:29)
[2022-05-07] MEDS: ARIPiprazole 10 MG TABLET PO SCH (08:29)
[2022-05-07] MEDS: CARVEDILOL 3.125 MG TABLET PO SCH ×2 (08:30→16:13)
[2022-05-07] MEDS: BusPIRone HCL 10 MG TABLET PO SCH ×3 (08:30→16:13)
[2022-05-07] MEDS: CITALOPRAM HYDROBROMIDE 10 MG TABLET PO SCH (08:30)
[2022-05-07] MEDS: HydrOXYzine PAMOATE 25 MG CAPSULE PO PRN (13:51)
[2022-05-07] MEDS: IBUPROFEN 400 MG TABLET PO PRN (13:57)
[2022-05-07 16:10] VITALS: BP 137/87
[2022-05-07 20:15] VITALS: BP 137/87
[2022-05-07] MEDS: ZOLPIDEM TARTRATE 10 MG TABLET PO PRN (20:30)
[2022-05-07] MEDS: MIRTAZAPINE 30 MG TABLET PO SCH (20:30)
[2022-05-07] MEDS: TraZODone HCL 50 MG TABLET PO SCH (20:30)
[2022-05-08] MEDS: CITALOPRAM HYDROBROMIDE 10 MG TABLET PO SCH (08:15)
[2022-05-08] MEDS: BusPIRone HCL 10 MG TABLET PO SCH ×3 (08:15→17:00)
[2022-05-08] MEDS: CARVEDILOL 3.125 MG TABLET PO SCH ×2 (08:15→17:00)
[2022-05-08] MEDS: AmLODIPine BESYLATE 10 MG TABLET PO SCH (08:16)
[2022-05-08] MEDS: LOSARTAN POTASSIUM 50 MG TABLET PO SCH (08:16)
[2022-05-08] MEDS: OMEPRAZOLE 20 MG CAPSULE PO SCH (08:16)
[2022-05-08] MEDS: LORazepam 2 MG TABLET PO PRN ×2 (08:19→20:25)
[2022-05-08] MEDS: ARIPiprazole 10 MG TABLET PO SCH (08:23)
[2022-05-08 08:44] VITALS: BP 142/84
[2022-05-08] MEDS: IBUPROFEN 400 MG TABLET PO PRN (08:56)
[2022-05-08] MEDS: HydrOXYzine PAMOATE 25 MG CAPSULE PO PRN (15:10)
[2022-05-08 17:19] VITALS: BP 154/98
[2022-05-08] MEDS: MIRTAZAPINE 30 MG TABLET PO SCH (20:09)
[2022-05-08] MEDS: TraZODone HCL 50 MG TABLET PO SCH (20:09)
[2022-05-08] MEDS: ZOLPIDEM TARTRATE 10 MG TABLET PO PRN (20:25)
[2022-05-09 00:01] VITALS: BP 138/78
[2022-05-09 05:16] VITALS: BP 122/76
[2022-05-09 08:48] VITALS: BP 129/90
[2022-05-09] MEDS ORDERED: ARIPiprazole 15 MG TABLET PO SCH (09:00)
[2022-05-09] MEDS: LOSARTAN POTASSIUM 50 MG TABLET PO SCH (09:08)
[2022-05-09] MEDS: CITALOPRAM HYDROBROMIDE 10 MG TABLET PO SCH (09:08)
[2022-05-09] MEDS: AmLODIPine BESYLATE 10 MG TABLET PO SCH (09:08)
[2022-05-09] MEDS: CARVEDILOL 3.125 MG TABLET PO SCH ×2 (09:08→16:34)
[2022-05-09] MEDS: BusPIRone HCL 10 MG TABLET PO SCH ×3 (09:09→16:34)
[2022-05-09] MEDS: OMEPRAZOLE 20 MG CAPSULE PO SCH (09:09)
[2022-05-09] MEDS: LORazepam 2 MG TABLET PO PRN (09:38)
[2022-05-09] MEDS: HydrOXYzine PAMOATE 25 MG CAPSULE PO PRN (15:50)
[2022-05-09 16:08] VITALS: BP 126/77
[2022-05-09 20:29] VITALS: BP 134/94
[2022-05-09] MEDS: MIRTAZAPINE 30 MG TABLET PO SCH (20:36)
[2022-05-09] MEDS: TraZODone HCL 50 MG TABLET PO SCH (20:36)
[2022-05-09] MEDS: ZOLPIDEM TARTRATE 10 MG TABLET PO PRN (20:49)
[2022-05-10 08:22] VITALS: BP 130/80
[2022-05-10] MEDS: OMEPRAZOLE 20 MG CAPSULE PO SCH (08:33)
[2022-05-10] MEDS: CARVEDILOL 3.125 MG TABLET PO SCH ×2 (08:33→16:41)
[2022-05-10] MEDS: BusPIRone HCL 10 MG TABLET PO SCH ×3 (08:33→16:41)
[2022-05-10] MEDS: CITALOPRAM HYDROBROMIDE 10 MG TABLET PO SCH (08:34)
[2022-05-10] MEDS: LOSARTAN POTASSIUM 50 MG TABLET PO SCH (08:34)
[2022-05-10] MEDS: AmLODIPine BESYLATE 10 MG TABLET PO SCH (08:34)
[2022-05-10] MEDS: ARIPiprazole 10 MG TABLET PO SCH (08:34)
[2022-05-10] MEDS: HydrOXYzine PAMOATE 25 MG CAPSULE PO PRN ×2 (13:17→19:46)
[2022-05-10 16:40] VITALS: BP 134/87
[2022-05-10] MEDS: IBUPROFEN 400 MG TABLET PO PRN (17:31)
[2022-05-10 20:06] VITALS: BP 138/84
[2022-05-10] MEDS: MIRTAZAPINE 30 MG TABLET PO SCH (20:33)
[2022-05-10] MEDS: TraZODone HCL 50 MG TABLET PO SCH (20:33)
[2022-05-10] MEDS: ZOLPIDEM TARTRATE 10 MG TABLET PO PRN (21:02)
[2022-05-11 07:36] LABS: GLUCOMETER DEV NAME(LOC) POC.BV
[2022-05-11 08:02] VITALS: BP 140/80
[2022-05-11] MEDS: ARIPiprazole 10 MG TABLET PO SCH ×2 (09:00→11:50)
[2022-05-11] MEDS: CARVEDILOL 3.125 MG TABLET PO SCH ×2 (09:24→16:31)
[2022-05-11] MEDS: AmLODIPine BESYLATE 10 MG TABLET PO SCH (09:25)
[2022-05-11] MEDS: CITALOPRAM HYDROBROMIDE 10 MG TABLET PO SCH (09:25)
[2022-05-11] MEDS: OMEPRAZOLE 20 MG CAPSULE PO SCH (09:25)
[2022-05-11] MEDS: BusPIRone HCL 10 MG TABLET PO SCH ×3 (09:25→16:31)
[2022-05-11] MEDS: LOSARTAN POTASSIUM 50 MG TABLET PO SCH (09:25)
[2022-05-11] MEDS: IBUPROFEN 400 MG TABLET PO PRN (12:08)
[2022-05-11 16:29] VITALS: BP 141/91
[2022-05-11] MEDS: HydrOXYzine PAMOATE 25 MG CAPSULE PO PRN (18:20)
[2022-05-11] MEDS: TraZODone HCL 50 MG TABLET PO SCH (20:29)
[2022-05-11] MEDS: MIRTAZAPINE 30 MG TABLET PO SCH (20:29)
[2022-05-11] MEDS: ZOLPIDEM TARTRATE 10 MG TABLET PO PRN (20:40)
[2022-05-11 20:44] VITALS: BP 134/79
[2022-05-12 08:34] VITALS: BP 112/70
[2022-05-12] MEDS: BusPIRone HCL 10 MG TABLET PO SCH ×3 (08:54→16:41)
[2022-05-12] MEDS: LOSARTAN POTASSIUM 50 MG TABLET PO SCH (08:54)
[2022-05-12] MEDS: AmLODIPine BESYLATE 10 MG TABLET PO SCH (08:54)
[2022-05-12] MEDS: OMEPRAZOLE 20 MG CAPSULE PO SCH (08:54)
[2022-05-12] MEDS: CARVEDILOL 3.125 MG TABLET PO SCH ×2 (08:56→16:42)
[2022-05-12] MEDS: CITALOPRAM HYDROBROMIDE 10 MG TABLET PO SCH (08:56)
[2022-05-12] MEDS: ARIPiprazole 10 MG TABLET PO SCH (10:18)
[2022-05-12] MEDS: IBUPROFEN 400 MG TABLET PO PRN (10:22)
[2022-05-12] MEDS: HydrOXYzine PAMOATE 25 MG CAPSULE PO PRN ×2 (11:49→18:32)
[2022-05-12 16:31] VITALS: BP 135/83
[2022-05-12] MEDS: TraZODone HCL 50 MG TABLET PO SCH (20:22)
[2022-05-12] MEDS: MIRTAZAPINE 30 MG TABLET PO SCH (20:22)
[2022-05-12] MEDS: ZOLPIDEM TARTRATE 10 MG TABLET PO PRN (20:55)
[2022-05-12 21:13] VITALS: BP 121/66
[2022-05-13 09:09] VITALS: BP 147/87
[2022-05-13] MEDS: OMEPRAZOLE 20 MG CAPSULE PO SCH (09:12)
[2022-05-13] MEDS: LOSARTAN POTASSIUM 50 MG TABLET PO SCH (09:12)
[2022-05-13] MEDS: CARVEDILOL 3.125 MG TABLET PO SCH ×2 (09:12→16:46)
[2022-05-13] MEDS: ARIPiprazole 10 MG TABLET PO SCH (09:12)
[2022-05-13] MEDS: AmLODIPine BESYLATE 10 MG TABLET PO SCH (09:12)
[2022-05-13] MEDS: CITALOPRAM HYDROBROMIDE 10 MG TABLET PO SCH (09:12)
[2022-05-13] MEDS: BusPIRone HCL 10 MG TABLET PO SCH ×3 (09:12→16:46)
[2022-05-13] MEDS: HydrOXYzine PAMOATE 25 MG CAPSULE PO PRN (12:03)
[2022-05-13 16:44] VITALS: BP 141/90
[2022-05-13] MEDS: IBUPROFEN 400 MG TABLET PO PRN (19:00)
[2022-05-13 20:03] VITALS: BP 132/78
[2022-05-13] MEDS: TraZODone HCL 50 MG TABLET PO SCH (20:06)
[2022-05-13] MEDS: MIRTAZAPINE 30 MG TABLET PO SCH (20:07)
[2022-05-13] MEDS: ZOLPIDEM TARTRATE 10 MG TABLET PO PRN (21:16)
[2022-05-14 08:08] VITALS: BP 139/79
[2022-05-14 08:22] VITALS: BP 139/79
[2022-05-14] MEDS: CARVEDILOL 3.125 MG TABLET PO SCH ×2 (08:26→16:35)
[2022-05-14] MEDS: ARIPiprazole 10 MG TABLET PO SCH (08:26)
[2022-05-14] MEDS: BusPIRone HCL 10 MG TABLET PO SCH ×3 (08:26→16:35)
[2022-05-14] MEDS: OMEPRAZOLE 20 MG CAPSULE PO SCH (08:27)
[2022-05-14] MEDS: AmLODIPine BESYLATE 10 MG TABLET PO SCH (08:27)
[2022-05-14] MEDS: CITALOPRAM HYDROBROMIDE 10 MG TABLET PO SCH (08:27)
[2022-05-14] MEDS: LOSARTAN POTASSIUM 50 MG TABLET PO SCH (08:27)
[2022-05-14] MEDS: HydrOXYzine PAMOATE 25 MG CAPSULE PO PRN ×2 (10:25→17:27)
[2022-05-14 16:26] VITALS: BP 144/89
[2022-05-14 17:14] VITALS: BP 142/90
[2022-05-14] MEDS: IBUPROFEN 400 MG TABLET PO PRN (17:22)
[2022-05-14] MEDS: TraZODone HCL 50 MG TABLET PO SCH (20:26)
[2022-05-14] MEDS: MIRTAZAPINE 30 MG TABLET PO SCH (20:27)
[2022-05-14 20:39] VITALS: BP 144/89
[2022-05-14] MEDS: ZOLPIDEM TARTRATE 10 MG TABLET PO PRN (20:55)
[2022-05-15 08:44] VITALS: BP 140/80
[2022-05-15] MEDS: ARIPiprazole 10 MG TABLET PO SCH (08:55)
[2022-05-15] MEDS: BusPIRone HCL 10 MG TABLET PO SCH ×3 (08:56→16:37)
[2022-05-15] MEDS: CARVEDILOL 3.125 MG TABLET PO SCH ×2 (08:57→16:37)
[2022-05-15] MEDS: CITALOPRAM HYDROBROMIDE 10 MG TABLET PO SCH (08:57)
[2022-05-15] MEDS: LOSARTAN POTASSIUM 50 MG TABLET PO SCH (08:57)
[2022-05-15] MEDS: AmLODIPine BESYLATE 10 MG TABLET PO SCH (08:58)
[2022-05-15] MEDS: OMEPRAZOLE 20 MG CAPSULE PO SCH (08:58)
[2022-05-15] MEDS: HydrOXYzine PAMOATE 25 MG CAPSULE PO PRN (13:58)
[2022-05-15 16:15] VITALS: BP 135/78
[2022-05-15] MEDS: IBUPROFEN 400 MG TABLET PO PRN (16:36)
[2022-05-15 20:00] VITALS: BP 141/87
[2022-05-15] MEDS: TraZODone HCL 50 MG TABLET PO SCH (20:21)
[2022-05-15] MEDS: MIRTAZAPINE 30 MG TABLET PO SCH (20:40)
[2022-05-15] MEDS: ZOLPIDEM TARTRATE 10 MG TABLET PO PRN (20:40)
[2022-05-16] MEDS: CARVEDILOL 3.125 MG TABLET PO SCH ×2 (08:13→16:42)
[2022-05-16] MEDS: LOSARTAN POTASSIUM 50 MG TABLET PO SCH (08:13)
[2022-05-16] MEDS: BusPIRone HCL 10 MG TABLET PO SCH ×3 (08:13→16:42)
[2022-05-16] MEDS: CITALOPRAM HYDROBROMIDE 10 MG TABLET PO SCH (08:13)
[2022-05-16] MEDS: ARIPiprazole 10 MG TABLET PO SCH (08:13)
[2022-05-16] MEDS: AmLODIPine BESYLATE 10 MG TABLET PO SCH (08:13)
[2022-05-16] MEDS: OMEPRAZOLE 20 MG CAPSULE PO SCH (08:13)
[2022-05-16 08:15] VITALS: BP 137/80
[2022-05-16] MEDS: HydrOXYzine PAMOATE 25 MG CAPSULE PO PRN (12:49)
[2022-05-16 16:00] VITALS: BP 152/93
[2022-05-16] MEDS: MIRTAZAPINE 30 MG TABLET PO SCH (20:09)
[2022-05-16] MEDS: TraZODone HCL 50 MG TABLET PO SCH (20:09)
[2022-05-16] MEDS: ZOLPIDEM TARTRATE 10 MG TABLET PO PRN (20:45)
[2022-05-16 21:04] VITALS: BP 154/98
[2022-05-17 08:22] VITALS: BP 137/86
[2022-05-17] MEDS: CITALOPRAM HYDROBROMIDE 10 MG TABLET PO SCH (08:27)
[2022-05-17] MEDS: OMEPRAZOLE 20 MG CAPSULE PO SCH (08:27)
[2022-05-17] MEDS: BusPIRone HCL 10 MG TABLET PO SCH ×3 (08:27→18:14)
[2022-05-17] MEDS: LOSARTAN POTASSIUM 50 MG TABLET PO SCH (08:27)
[2022-05-17] MEDS: AmLODIPine BESYLATE 10 MG TABLET PO SCH (08:27)
[2022-05-17] MEDS: ARIPiprazole 10 MG TABLET PO SCH (08:27)
[2022-05-17] MEDS: CARVEDILOL 3.125 MG TABLET PO SCH ×2 (08:40→16:30)
[2022-05-17] MEDS: HydrOXYzine PAMOATE 25 MG CAPSULE PO PRN (16:09)
[2022-05-17 16:29] VITALS: BP 129/87
[2022-05-17 20:08] VITALS: BP 145/94
[2022-05-17] MEDS: TraZODone HCL 50 MG TABLET PO SCH (20:30)
[2022-05-17] MEDS: MIRTAZAPINE 30 MG TABLET PO SCH (20:31)
[2022-05-17] MEDS: ZOLPIDEM TARTRATE 10 MG TABLET PO PRN (21:08)
[2022-05-18 08:16] LABS: GLUCOMETER DEV NAME(LOC) POC.BV
[2022-05-18 08:23] VITALS: BP 117/77
[2022-05-18] MEDS: CARVEDILOL 3.125 MG TABLET PO SCH ×2 (09:43→16:36)
[2022-05-18] MEDS: LOSARTAN POTASSIUM 50 MG TABLET PO SCH (09:43)
[2022-05-18] MEDS: AmLODIPine BESYLATE 10 MG TABLET PO SCH (09:43)
[2022-05-18] MEDS: OMEPRAZOLE 20 MG CAPSULE PO SCH (09:43)
[2022-05-18] MEDS: CITALOPRAM HYDROBROMIDE 10 MG TABLET PO SCH (09:43)
[2022-05-18] MEDS: BusPIRone HCL 10 MG TABLET PO SCH ×3 (09:43→16:36)
[2022-05-18] MEDS: ARIPiprazole 10 MG TABLET PO SCH (09:43)
[2022-05-18 16:54] VITALS: BP 139/86
[2022-05-18 20:01] VITALS: BP 158/91
[2022-05-18] MEDS: TraZODone HCL 50 MG TABLET PO SCH (20:39)
[2022-05-18] MEDS: MIRTAZAPINE 30 MG TABLET PO SCH (20:40)
[2022-05-18] MEDS: ZOLPIDEM TARTRATE 10 MG TABLET PO PRN (21:25)
[2022-05-19] MEDS: CITALOPRAM HYDROBROMIDE 10 MG TABLET PO SCH (08:09)
[2022-05-19] MEDS: AmLODIPine BESYLATE 10 MG TABLET PO SCH (08:09)
[2022-05-19] MEDS: ARIPiprazole 10 MG TABLET PO SCH (08:09)
[2022-05-19] MEDS: OMEPRAZOLE 20 MG CAPSULE PO SCH (08:09)
[2022-05-19] MEDS: LOSARTAN POTASSIUM 50 MG TABLET PO SCH (08:09)
[2022-05-19 08:10] VITALS: BP 131/81
[2022-05-19] MEDS: CARVEDILOL 3.125 MG TABLET PO SCH (08:10)
[2022-05-19] MEDS: BusPIRone HCL 10 MG TABLET PO SCH ×2 (08:10→12:32)
[2022-05-19] MEDS: IBUPROFEN 400 MG TABLET PO PRN (12:08)
[2022-05-19] MEDS ORDERED: OMEP20 PO (12:20)
[2022-05-19] MEDS ORDERED: BUSP10TA23 PO (12:20)
[2022-05-20] MEDS ORDERED: MIRT-149 PO (06:37)
[2022-05-20] MEDS ORDERED: TRAZ-252 PO (06:37)
[2022-05-20] MEDS ORDERED: CARV3 PO (06:37)
[2022-05-20] MEDS ORDERED: AMLO-258 PO (06:37)
[2022-05-20] MEDS ORDERED: ARIP10TA38 PO (06:37)
[2022-05-20] MEDS ORDERED: CITA10TA99 PO (06:37)
[2022-05-20] MEDS ORDERED: OMEP20 PO (06:37)
[2022-05-20] MEDS ORDERED: LOSA-382 PO (06:37)
[2022-05-20] MEDS ORDERED: BUSP10TA23 PO (06:37)
== END 2022-05-19 14:08 | disposition home or self-care (01) | DRG 885 ==
LOC: EMS 23:10 → UNDOADMIN 04-22 03:43 → B2X 04-22 03:43 → B3A 05-06 19:16 → B2X 05-06 19:16 → B3A 05-06 20:20 → B2X 05-07 08:39 → B3A 05-07 08:39 → UNDODISIN 05-19 14:08
PROVIDERS: ADMIT Psychiatry & Neurology Psychiatry; ATTEND Psychiatry & Neurology Psychiatry
DX: F25.1 Schizoaffective disorder, depressive type (principal); F13.239 Sedative, hypnotic or anxiolytic dependence with withdrawal, unspecified; R45.851 Suicidal ideations; F41.9 Anxiety disorder, unspecified; E11.9 Type 2 diabetes mellitus without complications; E66.9 Obesity, unspecified; F10.10 Alcohol abuse, uncomplicated; F12.10 Cannabis abuse, uncomplicated; Z20.822 Contact with and (suspected) exposure to COVID-19; F14.10 Cocaine abuse, uncomplicated; F17.210 Nicotine dependence, cigarettes, uncomplicated; F15.10 Other stimulant abuse, uncomplicated; I10 Essential (primary) hypertension; J44.9 Chronic obstructive pulmonary disease, unspecified; Z79.899 Other long term (current) drug therapy
CPT/HCPCS: 80053; 80061; 81001; 83036; 84439; 84443; 85025; 87081; 99285; G0480; Q0162

== ENCOUNTER 2022-04-30 14:00 | Emergency (ER) | payer MEDICARE ==
[~2022-04-30] VITALS: Ht 167.6 cm; Wt 100.0 kg
[2022-04-30 15:12] LABS: EOSINOPHILS % (AUTO) 0.8 % (1.0-6.0); HEMATOCRIT 39.9 % (41-53); HEMOGLOBIN 13.3 g/dL (13.5-17.5); LYMPHOCYTES % (AUTO) 14.6 % (22.0-44.0); MEAN CORPUSCULAR HEMOGLOBIN 27.7 pg (26.0-34.0); MEAN CORPUSCULAR HGB CONC 33.3 G/dL (31.0-37.0); MEAN CORPUSCULAR VOLUME 83 fL (80-100); MONOCYTES # (AUTO) 1.3 K/uL (0.1-1.0); MONOCYTES % (AUTO) 9.8 % (2.0-9.0); NEUTROPHILS # (AUTO) 10.1 K/uL (1.8-7.7); NEUTROPHILS % (AUTO) 73.8 % (40.0-70.0); PLATELET COUNT (AUTO) 324 K/uL (150-450); RED BLOOD CELL COUNT(AUTO) 4.79 MIL/uL (4.50-5.90); RED CELL DISTRIBUTION WIDTH 13.9 % (11.5-14.5)
[2022-04-30 15:29] LABS: APPEARANCE,URINE CLEAR (CLEAR); BILIRUBIN,URINE NEGATIVE (NEGATIVE); GLUCOSE, URINE (UA) NEGATIVE (NEGATIVE); KETONES,URINE NEGATIVE (NEGATIVE); LEUKOCYTE ESTERASE ,URINE NEGATIVE (NEGATIVE); NITRATE,URINE NEGATIVE (NEGATIVE); OCCULT BLOOD,URINE NEGATIVE (NEGATIVE); PH,URINE 6.5 (5.0-8.0); PROTEIN,URINE NEGATIVE (NEGATIVE); UROBILINOGEN,URINE <=1.0 mg/dL (<=1.0)
[2022-04-30 15:34] LABS: ANION GAP 8 mmol/L (8-16); CALCIUM, TOTAL 9.4 mg/dL (8.8-10.5); CARBON DIOXIDE 25 mmol/L (22-29); CHLORIDE 101 mmol/L (98-107); CREATININE 0.88 mg/dL (0.60-1.30); GLOMERULAR FILTR. RATE CALC > 60 mL/min (>60); GLUCOSE,RANDOM 108 mg/dL (70-110); POTASSIUM 3.9 mmol/L (3.5-5.1); SODIUM SERUM 134 mmol/L (136-145); UREA NITROGEN, BLOOD 15 mg/dL (7-18)
[2022-04-30 15:43] LABS: LACTIC ACID 1.1 mmol/L (0.4-2.0)
[2022-04-30] MEDS ORDERED: LORazepam 2 MG TABLET PO ONE (15:45)
[2022-04-30] MEDS ORDERED: ONDANSETRON HCL 4 MG TABLET PO ONE (15:45)
[2022-04-30] MEDS ORDERED: ACETAMINOPHEN 500 MG TABLET PO ONE (15:45)
[2022-04-30 15:56] LABS: BACTERIA,URINE None Seen /HPF (None Seen); RBC,URINE 0-2 /HPF (0-2); SQUAMOUS EPITHELIAL CELL,UR Rare /LPF (None Seen); WBC,URINE 0-2 /HPF (0-5)
[2022-04-30 16:14] LABS: INFLUENZA TYPE A NEGATIVE FOR TYPE A (NEGATIVE); INFLUENZA TYPE B NEGATIVE FOR TYPE B (NEGATIVE)
[2022-04-30 18:00] VITALS: BP 148/95
== END 2022-04-30 18:22 ==
LOC: EMS 14:09
DX: B34.9 Viral infection, unspecified (principal); F20.9 Schizophrenia, unspecified; F12.90 Cannabis use, unspecified, uncomplicated; F15.10 Other stimulant abuse, uncomplicated; F17.210 Nicotine dependence, cigarettes, uncomplicated; I10 Essential (primary) hypertension; J45.909 Unspecified asthma, uncomplicated; R11.0 Nausea; R09.81 Nasal congestion
CPT/HCPCS: 99284; 71045; 80048; 81001; 83605; 87420; 85025; 87804; 36415; Q0162

== ENCOUNTER 2022-07-06 16:41 | Inpatient (IN) | payer MEDICARE ==
[~2022-07-06] VITALS: Ht 167.6 cm; Wt 98.9 kg
[~2022-07-06 16:41] MED LIST changes: +BUSP10TA23 PO; -BUSP5TAB20 PO; +OMEP20 PO
[2022-07-06] MEDS ORDERED: INFLUENZA VIRUS VACCINE QVS 2022-23 (6MO+)/PF 60 MCG/0.5 ML SYRINGE IM. ONE (20:00)
[2022-07-06] MEDS ORDERED: -PHARMACY VACCINE NOTE- MISC ONE (20:15)
[2022-07-06 20:21] LABS: GLUCOMETER DEV NAME(LOC) POC.BV
[2022-07-06] MEDS ORDERED: ZOLPIDEM TARTRATE 10 MG TABLET PO PRN (22:00)
[2022-07-06] MEDS: LORazepam 2 MG TABLET PO PRN (22:06)
[2022-07-06 23:07] VITALS: BP 145/84
[2022-07-07 07:58] LABS: BASOPHILS % (AUTO) 1.3 % (0.0-2.0); EOSINOPHILS % (AUTO) 3.6 % (1.0-6.0); HEMATOCRIT 35.4 % (41-53); HEMOGLOBIN 11.9 g/dL (13.5-17.5); LYMPHOCYTES % (AUTO) 22.2 % (22.0-44.0); MEAN CORPUSCULAR HEMOGLOBIN 27.7 pg (26.0-34.0); MEAN CORPUSCULAR HGB CONC 33.5 G/dL (31.0-37.0); MEAN CORPUSCULAR VOLUME 83 fL (80-100); MONOCYTES # (AUTO) 0.9 K/uL (0.1-1.0); MONOCYTES % (AUTO) 9.8 % (2.0-9.0); NEUTROPHILS # (AUTO) 5.7 K/uL (1.8-7.7); NEUTROPHILS % (AUTO) 63.1 % (40.0-70.0); PLATELET COUNT (AUTO) 215 K/uL (150-450); RED BLOOD CELL COUNT(AUTO) 4.28 MIL/uL (4.50-5.90); RED CELL DISTRIBUTION WIDTH 15.3 % (11.5-14.5)
[2022-07-07 08:22] LABS: ALANINE AMINOTRANSFERASE 34 U/L (12-78); ALBUMIN 3.6 g/dL (3.4-5.0); ALKALINE PHOSPHATASE 85 U/L (46-116); ANION GAP 9 mmol/L (8-16); ASPARTATE AMINOTRANSFERASE 23 U/L (15-37); BILIRUBIN,TOTAL 0.2 mg/dL (0.1-1.0); CARBON DIOXIDE 28 mmol/L (22-29); CHLORIDE 102 mmol/L (98-107); CHOL/HDL RATIO 2.6 (4.2-7.3); CHOLESTEROL 147 mg/dL (131-200); CREATININE 1.02 mg/dL (0.60-1.30); FREE T4 (FREE THYROXINE) 0.87 ng/dL (0.76-1.46); GLOMERULAR FILTR. RATE CALC > 60 mL/min (>60); GLUCOSE,RANDOM 116 mg/dL (70-110); HDL CHOLESTEROL 56 mg/dL (40-60); LDL CHOL (CALC.) 49 mg/dL (0-130); POTASSIUM 3.8 mmol/L (3.5-5.1); SODIUM SERUM 139 mmol/L (136-145); THYROID STIMULATING HORMONE 1.05 uIU/mL (0.36-3.74); TOTAL PROTEIN, SERUM 7.2 g/dL (6.4-8.2); TRIGLYCERIDES 208 mg/dL (15-150); UREA NITROGEN, BLOOD 13 mg/dL (7-18)
[2022-07-07] MEDS: LORazepam 2 MG TABLET PO PRN ×2 (08:31→12:48)
[2022-07-07] MEDS ORDERED: NICOTINE 21 MG/24 HOUR PATCH TD PRN (08:45)
[2022-07-07] MEDS: CARVEDILOL 3.125 MG TABLET PO SCH (09:01)
[2022-07-07] MEDS: AmLODIPine BESYLATE 10 MG TABLET PO SCH (09:01)
[2022-07-07] MEDS: OLANZapine 5 MG RAPDIS TABLET PO PRN ×2 (09:01→12:48)
[2022-07-07] MEDS: OMEPRAZOLE 20 MG CAPSULE PO SCH (09:01)
[2022-07-07] MEDS ORDERED: BACITRACIN 28 GM OINTMENT TP PRN (09:15)
[2022-07-07] MEDS ORDERED: CloNIDine HCL 0.1 MG TABLET PO PRN (09:15)
[2022-07-07] MEDS ORDERED: BENZOCAINE/MENTHOL LOZENGE PO PRN (09:15)
[2022-07-07] MEDS ORDERED: DOCUSATE SODIUM 100 MG CAPSULE PO PRN (09:15)
[2022-07-07] MEDS ORDERED: LOPERAMIDE HCL 2 MG CAPSULE PO PRN (09:15)
[2022-07-07] MEDS ORDERED: MAGNESIUM HYDROXIDE SUSPENSION 30 ML UDCUP PO PRN (09:15)
[2022-07-07] MEDS ORDERED: ONDANSETRON HCL 4 MG TABLET PO PRN (09:15)
[2022-07-07] MEDS ORDERED: IBUPROFEN 600 MG TABLET PO PRN (09:15)
[2022-07-07] MEDS ORDERED: ALBUTEROL SULFATE HFA 90 MCG/PUFF 8 GM INHALER IH PRN (09:15)
[2022-07-07] MEDS ORDERED: MAG HYDROX/AL HYDROX/SIMETH ES 30 ML SUSPENSION UDCUP PO PRN (09:15)
[2022-07-07] MEDS ORDERED: OMEPRAZOLE 20 MG CAPSULE PO PRN (09:15)
[2022-07-07] MEDS ORDERED: ACETAMINOPHEN 325 MG TABLET PO PRN (09:15)
[2022-07-07] MEDS ORDERED: PETROLATUM,WHITE 28 GM JELLY TP PRN (09:15)
[2022-07-07 09:40] LABS: HEMOGLOBIN A1C 5.7 % (3.8-5.6)
[2022-07-07 11:13] VITALS: BP 140/80
[2022-07-07 20:29] VITALS: BP 143/82
[2022-07-08 08:00] VITALS: BP 140/90
[2022-07-08] MEDS: AmLODIPine BESYLATE 10 MG TABLET PO SCH (08:01)
[2022-07-08] MEDS: LORazepam 2 MG TABLET PO PRN (08:01)
[2022-07-08] MEDS: CARVEDILOL 3.125 MG TABLET PO SCH (08:01)
[2022-07-08] MEDS: OMEPRAZOLE 20 MG CAPSULE PO SCH (08:01)
[2022-07-08 08:36] LABS: APPEARANCE,URINE CLEAR (CLEAR); BILIRUBIN,URINE NEGATIVE (NEGATIVE); GLUCOSE, URINE (UA) NEGATIVE (NEGATIVE); KETONES,URINE NEGATIVE (NEGATIVE); LEUKOCYTE ESTERASE ,URINE NEGATIVE (NEGATIVE); NITRATE,URINE NEGATIVE (NEGATIVE); OCCULT BLOOD,URINE NEGATIVE (NEGATIVE); PROTEIN,URINE NEGATIVE (NEGATIVE); SPECIFIC GRAVITIY, URINE 1.005 (1.003-1.030); UROBILINOGEN,URINE <=1.0 mg/dL (<=1.0)
[2022-07-08] MEDS: OLANZapine 5 MG RAPDIS TABLET PO PRN (08:43)
[2022-07-08 15:38] LABS: AMPHET/METH SCREEN,URINE NEGATIVE (NEGATIVE); BARBITURATE SCREEN, URINE NEGATIVE (NEGATIVE); BENZODIAZEPINES SCREEN,URINE NEGATIVE (NEGATIVE); CANNABINOID SCREEN,URINE POSITIVE (NEGATIVE); COCAINE SCREEN,URINE NEGATIVE (NEGATIVE); METHADONE SCREEN, URINE NEGATIVE (NEGATIVE); OPIATE SCREEN,URINE NEGATIVE (NEGATIVE); PHENCYCLIDINE SCREEN,URINE NEGATIVE (NEGATIVE)
== END 2022-07-08 12:54 | disposition home or self-care (01) | DRG 885 ==
LOC: B2X 21:15
PROVIDERS: ADMIT Psychiatry & Neurology Psychiatry; ATTEND Psychiatry & Neurology Psychiatry
DX: F25.9 Schizoaffective disorder, unspecified (principal); F32.9 Major depressive disorder, single episode, unspecified; Z20.822 Contact with and (suspected) exposure to COVID-19; F41.9 Anxiety disorder, unspecified; G47.00 Insomnia, unspecified; I10 Essential (primary) hypertension; K59.00 Constipation, unspecified; J44.9 Chronic obstructive pulmonary disease, unspecified; F12.90 Cannabis use, unspecified, uncomplicated; Z72.0 Tobacco use
CPT/HCPCS: 80053; 80061; 80307; 81003; 83036; 84439; 84443; 85025